=== PATIENT | male | born 1970 | race Caucasian/White ===

== ENCOUNTER 2016-06-05 18:12 | Emergency (ER) | payer BC, OTHER ==
[~2016-06-05] VITALS: Ht 160 cm; Wt 66.1 kg
[2016-06-05 18:18] VITALS: Ht 160 cm; Wt 66.1 kg
[2016-06-05] MEDS ORDERED: FLUO10CA48 PO (18:44)
[2016-06-05] MEDS ORDERED: NTRGSL/4 UT (18:44)
--- NOTE | 2016-06-05 18:44 | EMERGENCY ROOM VISIT NOTE ---
History Report prepared by Alexander: Corrina Muller Under the Supervision of: Dr. Jarad Hartman M.D. First contact with patient: 18:28 Chief Complaint: CHEST PAIN Stated Complaint: SEVERE CHEST PAIN History of Present Illness The patient is a 45 year old male who presents to the Emergency Room with complaints of worsening chest pain starting 1 month [employer]. The patient currently rates his pain as a 9/10 in severity. The patient states that his chest pain worsened a few days [employer]. The patient states that he was evaluated at [facility] 1 day ago and left against medical advice because he had to drive someone home. He states he had a CT scan done and was going to be admitted due to a possible aneurysm or pulmonary embolism. The patient states that his chest pain is worsened by taking deep breath. He states that he also has SOB, chills, and night sweats. The patient states he does not have any leg pain but states his legs and arms feel stiff. The patient states that he has a history of kidney problems along with depression and anxiety. Source of History: patient Onset: 1 month [employer] Position: chest Symptom Intensity: 9/10 Timing: worsening Modifying Factors (Relieving): breathing Associated Symptoms: + SOB, + chills Note: Associated symptoms: night sweats, leg and arm stiffness, depression, anxiety. Patient denies leg pain. Review of Systems All systems have been listed, reviewed, and are negative other than those previously mentioned. Please see Additional Medical History Sheet. Past Medical & Surgical Medical Problems: (1) Alcohol abuse (2) Anxiety disorder (3) Depression (4) Diverticulosis Colon (W/O Ment Of Hemorrhage) (5) FAMILY DISRUPTION D/T DIVORCE OR LEGAL SEPARATION (6) Hirschsprung's Disease (7) History of - depression (8) Kidney disease Family History Cancer Heart disease Lung disease Social History Smoking Status: Never Smoker Smokeless Tobacco Use: No Alcohol Use: occasionally (3/day) Drug Use: none Marital Status: Housing Status: lives with family Occupation Status: employed Current/Historical Medications Scheduled Fluoxetine (Prozac), 10 MG PO DAILY Nitroglycerin (Nitrostat), 0.4 MG UT PRN Scheduled PRN Ibuprofen Tab (Motrin), 600 MG PO Q6H PRN for Pain Allergies Coded Allergies: Citalopram (Verified Allergy, Severe, ANAPHYLAXIS, uses Prozac, 06/05/16) Gabapentin (Verified Allergy, Severe, LIGHT HEADED, 06/05/16) Penicillins (Verified Allergy, Unknown, ANAPHYLAXIS, 06/05/16) as child had pcn and stopped breathing Physical Exam Vital Signs Date Time Temp Pulse Resp B/P Pulse Ox O2 Delivery O2 Flow Rate FiO2 06/05/16 21:35 36.8 82 16 123/60 99 06/05/16 21:06 82 16 123/60 99 Room Air 06/05/16 20:00 78 19 130/90 99 Room Air 06/05/16 19:42 75 21 97 Room Air 06/05/16 19:37 75 27 98 06/05/16 19:32 76 22 97 06/05/16 19:27 72 22 96 Room Air 06/05/16 19:13 134/85 06/05/16 19:12 79 20 06/05/16 19:07 77 18 06/05/16 19:06 98 Room Air 06/05/16 19:06 98 Room Air 06/05/16 19:06 98 Room Air 06/05/16 19:02 78 20 06/05/16 18:58 133/84 06/05/16 18:57 77 32 97 Room Air 06/05/16 18:52 80 20 97 Room Air 06/05/16 18:47 77 20 97 Room Air 06/05/16 18:43 138/91 06/05/16 18:42 82 23 98 Room Air 06/05/16 18:37 81 19 99 Room Air 06/05/16 18:33 90 06/05/16 18:32 91 13 98 Room Air 06/05/16 18:29 163/105 06/05/16 18:18 36.8 81 18 147/78 99 Room Air Physical Exam GENERAL: Patient awake, alert, oriented x 3. Patient follows commands. Patient does not appear toxic. Patient is adequately hydrated and well- nourished. SKIN: No erythema, pallor, cyanosis or rash HEENT: Normal head, pupils equal, reactive to light and accommodation. Oral cavity and posterior pharynx appear normal. Neck: Without adenopathy, no neck vein distention. LUNGS: Clear to auscultation. No wheezes, no rales, no rhonchi. HEART: No murmurs. No gallops. No rubs ABDOMEN: No masses, no rebound, no hepatomegaly or splenomegaly. EXTREMITIES: No signs of trauma. No pedal or pretibial edema. No calf or thigh tenderness. NEUROLOGIC: Cranial nerves II-XII within normal limits. No gross motor sensory function deficits. Medical Decision & Procedures ER Provider Diagnostic Interpretation: X ray results are stated below per my interpretation and the radiologist's interpretation. CHEST 2 VIEWS ROUTINE CLINICAL HISTORY: CHEST PAIN dyspnea COMPARISON STUDY: 03/27/2016 FINDINGS: The bones soft tissues and hemidiaphragms are normal. The cardiomediastinal silhouette is normal. The lungs are clear. The pulmonary vasculature is normal. IMPRESSION: Negative chest. Electronically signed by: Thai Alford M.D. 06/05/2016 7:32 PM Dictated Date/Time: 06/05/2016 7:32 PM Laboratory Results 06/05/16 19:15 06/05/16 19:15 Test 06/05/16 19:15 Red Blood Count 4.69 M/uL (4.7-6.1) Mean Corpuscular Volume 93.0 fL (80-100) Mean Corpuscular Hemoglobin 32.0 pg (25-34) Mean Corpuscular Hemoglobin Concent 34.4 g/dl (32-36) RDW Standard Deviation 47.0 fL (36.4-46.3) RDW Coefficient of Variation 13.9 % (11.5-14.5) Mean Platelet Volume 11.6 fL (7.4-10.4) Anion Gap 9.0 mmol/L (3-11) Est Creatinine Clear Calc Drug Dose 79.8 ml/min Estimated GFR () 111.8 Estimated GFR (Non- 96.4 BUN/Creatinine Ratio 11.1 (10-20) Calcium Level 8.2 mg/dl (8.5-10.1) Troponin I < 0.015 ng/ml (0-0.045) Laboratory results as stated above per my review. Medications Administered Medications (Trade) Dose Ordered Sig/Bakari Route Start Time Stop Time Status Last Admin Dose Admin Ondansetron HCl (Zofran Inj) 4 mg Q1HWA PRN IV 06/05/16 18:45 06/05/16 21:45 DC 06/05/16 19:58 4 MG Morphine Sulfate (MoRPHine SULFATE INJ) 2 mg STK-MED ONCE .ROUTE 06/05/16 19:52 06/05/16 19:54 DC 06/05/16 19:58 2 MG Morphine Sulfate (MoRPHine SULFATE INJ) 4 mg STK-MED ONCE .ROUTE 06/05/16 19:52 06/05/16 19:54 DC 06/05/16 19:59 4 MG Ibuprofen (Motrin Tab) 600 mg NOW STAT PO 06/05/16 20:46 06/05/16 20:48 DC 06/05/16 21:04 600 MG ECG Indication: chest pain Rate (beats per minute): 80 Rhythm: normal sinus Findings: no acute ischemic change, no ectopy ED Course 1827: Past medical records reviewed. The patient was evaluated in room C11B. A complete history and physical examination was performed. 1844: Ordered Zofran Inj 4 mg IV, Morphine Sulfate 6 mg IV. 2029: Review of [place] data from 1 day ago, multiple lab imaging performed. CT scan reveals aortic root/sinus of Valsalva aneurysm. 2033: I reevaluated the patient and discussed his results and he was hemodynamically stable. I discussed today's findings with him. He verbalized agreement of the treatment plan. The patient was discharged home. 2039: I discussed with case management if they could set up a follow up echocardiograph for the patient to further follow up on his results as an outpatient. 2045: Ordered Ibuprofen Tab 600 mg PO. Medical Decision I considered multiple diagnoses including myocardial infarction, chest wall pain , pericarditis, myocarditis, aortic emergencies, pulmonary embolism, congestive heart failure, GI causes, and other significant cardiopulmonary disorders, anxiety and depression. The patient was seen at [facility] 1 day ago and had multiple tests. CT results as listed above. The patient left AMA. The patient continues to complain of pain. A full workup ensued here but I did not repeat the CT. Multiple tests were obtained here. Please see above. The patient has no EKG findings or elevation of his troponin. His white count is slightly elevated. The patient has had this pain for over one month. The patient remains stable and I do not believe the patient requires admission at this time. I will attempt to arrange echocardiography for further evaluation of the aortic problem. The patient is extremely anxious and I believe that is a large part of his chest pain. The patient will be encouraged to use ibuprofen for the pain. He is to apply heat. He is to follow-up with his family physician. Impression Primary Impression: Substernal precordial chest pain Scribe Attestation The scribe's documentation has been prepared under my direction and personally reviewed by me in its entirety. I confirm that the note above accurately reflects all work, treatment, procedures, and medical decision making performed by me. Departure Information Dispostion Home / Self-Care Prescriptions Ibuprofen Tab (MOTRIN) 600 Mg Tab 600 MG PO Q6H Y for Pain, #20 TAB Prov: Jarad Hartman M.D. 06/05/16 Referrals Caron Diego D.O. (PCP) Forms HOME CARE DOCUMENTATION FORM, IMPORTANT VISIT INFORMATION Patient Instructions My [facility] Additional Instructions We will call you for an appointment for the echocardiogram. Follow-up with your family physician as soon as possible. 600 mg ibuprofen every 6 hours as needed for pain. Apply heat intermittently to your chest.
[2016-06-05] MEDS ORDERED: ONDANSETRON INJ 2 MG/ML 2 ML VIAL IV PRN (18:45)
[2016-06-05] MEDS ORDERED: MoRPHine SULFATE 10 MG/ML CARP/VIAL IV PRN (18:45)
[2016-06-05 19:06] VITALS: O2SAT 98
[2016-06-05 19:21] LABS: HEMATOCRIT 43.6 % (42-52); MEAN CORPUSCULAR HGB CONC 34.4 g/dl (32-36); MEAN PLATELET VOLUME 11.6 fL (7.4-10.4); PLATELET COUNT 160 K/uL (130-400); RED BLOOD COUNT 4.69 M/uL (4.7-6.1); WHITE BLOOD COUNT 13.28 K/uL (4.8-10.8)
--- NOTE | 2016-06-05 19:34 | DIAGNOSTIC IMAGING REPORT ---
CHEST 2 VIEWS ROUTINE CLINICAL HISTORY: CHEST PAIN dyspnea COMPARISON STUDY: 03/27/2016 FINDINGS: The bones soft tissues and hemidiaphragms are normal. The cardiomediastinal silhouette is normal. The lungs are clear. The pulmonary vasculature is normal. IMPRESSION: Negative chest. Electronically signed by: Thai Alford M.D. 06/05/2016 7:32 PM Dictated Date/Time: 06/05/2016 7:32 PM
[2016-06-05 19:40] LABS: BLOOD UREA NITROGEN 11 mg/dl (7-18); BUN/CREATININE RATIO 11.1 (10-20); CALCIUM 8.2 mg/dl (8.5-10.1); CARBON DIOXIDE 27 mmol/L (21-32); CHLORIDE 107 mmol/L (98-107); CREATININE 0.96 mg/dl (0.60-1.40); GLUCOSE 100 mg/dl (70-99); POTASSIUM 3.8 mmol/L (3.5-5.1); SODIUM 143 mmol/L (136-145)
[2016-06-05] MEDS ORDERED: MoRPHine SULFATE 2 MG/ML CARP ONE (19:52)
[2016-06-05] MEDS ORDERED: MoRPHine SULFATE 4 MG/ML 1 ML CARP\\VIAL ONE (19:52)
[2016-06-05] MEDS ORDERED: IBUP-1427 PO (20:44)
[2016-06-05] MEDS ORDERED: IBUPROFEN 600 MG TAB PO STA (20:46)
[2016-06-05 21:35] VITALS: BP 123/60; PULSE 82; TEMP 36.8; O2SAT 99
[2016-06-06] MEDS ORDERED: PRED20TA2 PO (21:09)
[2016-06-06] MEDS ORDERED: HYDR5SYP11 PO (21:10)
== END 2016-06-05 21:36 | disposition home or self-care (01) ==
LOC: C.EDB 18:13 → C.EDC 21:36
DX: R07.2 Precordial pain (principal); N28.9 Disorder of kidney and ureter, unspecified; F41.9 Anxiety disorder, unspecified; F32.9 Major depressive disorder, single episode, unspecified; K57.30 Diverticulosis of large intestine without perforation or abscess without bleeding; Q43.1 Hirschsprung's disease; Z79.899 Other long term (current) drug therapy

== ENCOUNTER 2016-06-06 16:54 | Emergency (ER) | payer OTHER ==
[~2016-06-06] VITALS: Ht 160 cm; Wt 64.6 kg
[~2016-06-06 16:54] MED LIST: FLUO10CA48 PO; IBUP-1427 PO; NTRGSL/4 UT
[2016-06-06 17:06] VITALS: TEMP 36.9; Ht 160 cm; Wt 64.6 kg
[2016-06-06] MEDS ORDERED: ONDANSETRON INJ 2 MG/ML 2 ML VIAL IV STA (18:11)
[2016-06-06] MEDS ORDERED: MoRPHine SULFATE 10 MG/ML CARP/VIAL IV STA (18:11)
[2016-06-06] MEDS ORDERED: SODIUM CHLORIDE 0.9% 1000ML 1,000 ML IV STA (18:14)
[2016-06-06] MEDS ORDERED: ALBUT/IPRATROP 3MG/0.5MG NEB 3 ML VIAL INH ONE (18:15)
[2016-06-06] MEDS ORDERED: OPTIRAY 320 IV PRN (18:30)
[2016-06-06] MEDS ORDERED: MoRPHine SULFATE 4 MG/ML 1 ML CARP\\VIAL ONE (18:30)
--- NOTE | 2016-06-06 18:32 | EMERGENCY ROOM VISIT NOTE ---
History Report prepared by Alexander: Molly Valenzuela Under the Supervision of: Dr. Angelito Clark M.D. First contact with patient: 17:36 Chief Complaint: COUGH Stated Complaint: COUGH WITH MUCUS, CHEST PAIN Nursing Triage Summary: Chest tightness that started last night, was seen here last night CP. Told to follow up for ECHO. Coughing up yellow stuff now. Unable to talk due to sorethroat. SOB. History of Present Illness The patient is a 45 year old male who presents to the Emergency Room with complaints of a worsening productive cough that started a couple days ago. The patient is also experiencing a sore throat and shortness of breath. The patient was seen in the ED last night for chest tightness. He was told to schedule a follow-up echocardiogram. They told him to come back into the ED if his symptoms worsened. He states that his cough became productive today with yellow sputum, which is why he came back. He has not been using an inhaler. The patient was seen in [place] two days ago for similar symptoms. He states that the chest tightness was more severe there. Source of History: patient Onset: a couple days ago Position: chest Quality: other (productive cough) Timing: worsening Associated Symptoms: + SOB, + sorethroat Note: chest tightness Review of Systems See HPI for pertinent positives & negatives. A total of 10 systems reviewed and were otherwise negative. Past Medical & Surgical Medical Problems: (1) Alcohol abuse (2) Anxiety disorder (3) Depression (4) Diverticulosis Colon (W/O Ment Of Hemorrhage) (5) FAMILY DISRUPTION D/T DIVORCE OR LEGAL SEPARATION (6) Hirschsprung's Disease (7) History of - depression (8) Kidney disease Family History Cancer Heart disease Lung disease Social History Smoking Status: Never Smoker Alcohol Use: occasionally Drug Use: none Marital Status: Housing Status: lives with family Occupation Status: employed Current/Historical Medications Scheduled Fluoxetine (Prozac), 20 MG PO QAM Prednisone (Prednisone Tab), 0 PO DAILY Scheduled PRN Hydrocodone W/ Homatropine (Hycodan 5/1.5MG 5 Ml), 5 ML PO HS PRN for Cough Allergies Coded Allergies: Citalopram (Verified Allergy, Severe, ANAPHYLAXIS, uses Prozac, 06/06/16) Gabapentin (Verified Allergy, Severe, LIGHT HEADED, 06/06/16) Penicillins (Verified Allergy, Unknown, ANAPHYLAXIS, 06/06/16) as child had pcn and stopped breathing Physical Exam Vital Signs Date Time Temp Pulse Resp B/P Pulse Ox O2 Delivery O2 Flow Rate FiO2 06/06/16 21:20 78 18 127/79 98 Room Air 06/06/16 19:44 98 18 137/97 97 Room Air 06/06/16 19:00 78 18 97 Room Air 06/06/16 18:44 85 20 157/109 94 Room Air 06/06/16 18:42 71 06/06/16 18:41 94 Room Air 06/06/16 18:41 96 Room Air 06/06/16 17:13 97 Room Air 06/06/16 17:06 36.9 97 20 124/88 96 Room Air Physical Exam GENERAL: Patient is a healthy-appearing well-nourished male. Patient is coughing on exam and smells of cigarettes. HEAD: Normocephalic atraumatic EYES: Ocular movements intact pupils equal and react to light OROPHARYNX mucous membranes are moist no exudates present no erythema or edema present NECK: Supple no nuchal rigidity CHEST: Good equal expansion LUNGS: Clear and equal to auscultation CARDIAC: Normal S1 and S2 ABDOMEN: Soft nontender no guarding BACK: No CVA tenderness EXTREMITIES: No pain upon palpation normal muscle strength in all groups no clubbing cyanosis or edema NEURO: Patient is following commands is answering questions appropriately. Alert and oriented x3 Cranial Nerves 2-12 grossly intact Medical Decision & Procedures ER Provider Diagnostic Interpretation: CT results as stated below per my review and radiologist interpretation: CHEST CTA for PULMONARY ARTERIES IMPRESSION: No evidence for pulmonary embolus. Lungs are clear. Mild cardiomegaly. Electronically signed by: Thai Alford M.D. 06/06/2016 7:58 PM Dictated Date/Time: 06/06/2016 7:56 PM Laboratory Results 06/06/16 18:40 Red Blood Count 4.49, Mean Corpuscular Volume 90.9, Mean Corpuscular Hemoglobin 30.7, Mean Corpuscular Hemoglobin Concent 33.8, Mean Platelet Volume 11.2, Neutrophils (%) (Auto) 77.4, Lymphocytes (%) (Auto) 11.0, Monocytes (%) (Auto) 8.8, Eosinophils (%) (Auto) 2.2, Basophils (%) (Auto) 0.1, Neutrophils # (Auto) 8.34, Lymphocytes # (Auto) 1.19, Monocytes # (Auto) 0.95, Eosinophils # (Auto) 0.24, Basophils # (Auto) 0.01 06/06/16 18:40 Test 06/06/16 18:40 06/06/16 18:47 06/06/16 19:00 White Blood Count 10.78 K/uL (4.8-10.8) Red Blood Count 4.49 M/uL (4.7-6.1) Hemoglobin 13.8 g/dL (14.0-18.0) Hematocrit 40.8 % (42-52) Mean Corpuscular Volume 90.9 fL (80-100) Mean Corpuscular Hemoglobin 30.7 pg (25-34) Mean Corpuscular Hemoglobin Concent 33.8 g/dl (32-36) Platelet Count 162 K/uL (130-400) Mean Platelet Volume 11.2 fL (7.4-10.4) Neutrophils (%) (Auto) 77.4 % Lymphocytes (%) (Auto) 11.0 % Monocytes (%) (Auto) 8.8 % Eosinophils (%) (Auto) 2.2 % Basophils (%) (Auto) 0.1 % Neutrophils # (Auto) 8.34 K/uL (1.4-6.5) Lymphocytes # (Auto) 1.19 K/uL (1.2-3.4) Monocytes # (Auto) 0.95 K/uL (0.11-0.59) Eosinophils # (Auto) 0.24 K/uL (0-0.5) Basophils # (Auto) 0.01 K/uL (0-0.2) RDW Standard Deviation 45.2 fL (36.4-46.3) RDW Coefficient of Variation 13.7 % (11.5-14.5) Immature Granulocyte % (Auto) 0.5 % Immature Granulocyte # (Auto) 0.05 K/uL (0.00-0.02) Urine Color YELLOW Urine Appearance CLEAR (CLEAR) Urine pH 5.5 (4.5-7.5) Urine Specific [place] 1.002 (1.000-1.030) Urine Protein NEG (NEG) Urine Glucose (UA) NEG (NEG) Urine Ketones NEG (NEG) Urine Occult Blood NEG (NEG) Urine Nitrite NEG (NEG) Urine Bilirubin NEG (NEG) Urine Urobilinogen NEG (NEG) Urine Leukocyte Esterase NEG (NEG) Est Creatinine Clear Calc Drug Dose 84.2 ml/min Estimated GFR () 119.2 Estimated GFR (Non- 102.9 BUN/Creatinine Ratio 10.8 (10-20) Calcium Level 7.7 mg/dl (8.5-10.1) Total Bilirubin 0.5 mg/dl (0.2-1) Aspartate Amino Transf (AST/SGOT) 36 U/L (15-37) Alanine Aminotransferase (ALT/SGPT) 32 U/L (12-78) Alkaline Phosphatase 73 U/L (45-117) Total Creatine Kinase 55 U/L (39-308) Creatine Kinase MB 0.5 ng/ml (0.5-3.6) Creatine Kinase MB Ratio 0.9 (0-3.0) Troponin I < 0.015 ng/ml (0-0.045) Total Protein 7.0 gm/dl (6.4-8.2) Albumin 3.7 gm/dl (3.4-5.0) Globulin 3.3 gm/dl (2.5-4.0) Albumin/Globulin Ratio 1.1 (0.9-2) Bedside Hemoglobin 14.3 g/dl (14.0-18.0) Bedside Hematocrit 42 % (42-52) Bedside Sodium 142 mEq/L (135-144) Bedside Potassium 4.1 mEq/L (3.3-5.0) Bedside Chloride 103 mEq/L (101-112) Bedside Total CO2 25 mEq/l (24-31) Anion Gap 19.0 mmol/L (16-25) Bedside Blood Urea Nitrogen 9 mg/dl (7-18) Bedside Creatinine 0.9 mg/dl (0.6-1.3) Bedside Glucose (other) 86 mg/dl (70-99) Bedside Ionized Calcium (Ibis) 1.04 mmol/l (1.12-1.32) Influenza Type A (RT-PCR) Neg for Influ A (NEG) Influenza Type B (RT-PCR) Neg for Influ B (NEG) Labs reviewed by ED physician. Medications Administered Medications (Trade) Dose Ordered Sig/Bakari Route Start Time Stop Time Status Last Admin Dose Admin Albuterol/ Ipratropium (Duoneb) 12 ml ONE ONCE INH 06/06/16 18:15 06/06/16 18:16 DC 06/06/16 18:15 12 ML Ondansetron HCl 4 mg 4 mg NOW STAT IV 06/06/16 18:11 06/06/16 18:14 DC 06/06/16 18:37 4 MG Sodium Chloride (Nss 1000ml) 1,000 ml @ 999 mls/hr Q1H1M STAT IV 06/06/16 18:14 06/06/16 19:14 DC 06/06/16 18:39 999 MLS/HR Morphine Sulfate (MoRPHine SULFATE INJ) 8 mg STK-MED ONCE .ROUTE 06/06/16 18:30 06/06/16 18:33 DC 06/06/16 18:39 8 MG Methylprednisolone Sodium Succinate (Solu-Medrol IV) 125 mg NOW STAT IV 06/06/16 21:04 06/06/16 21:05 DC 06/06/16 21:19 125 MG Albuterol (Ventolin Hfa Inhaler) 2 puffs NOW ONCE INH 06/06/16 21:15 06/06/16 21:16 DC 06/06/16 21:19 2 PUFFS Hydrocodone Bit/ Homatropine Methylb (Hycodan Elix Homepack 5/1.5MG/ 5ML) 1 homepack UD ONCE PO 06/06/16 21:15 06/06/16 21:16 DC 06/06/16 21:20 1 HOMEPACK ECG Indication: chest pain Rate (beats per minute): 74 Rhythm: normal sinus Findings: no acute ischemic change, no ectopy ED Course 1808: Past medical records reviewed. The patient was evaluated in room B6. A complete history and physical examination was performed. 1810: Ordered Zofran Inj 4 mg IV, Morphine Sulfate 8 mg IV 1813: Ordered Sodium Chloride 1000 ml @ 999 mls/hr IV 1814: Ordered DuoNeb 12 ml INH 1829: Ordered Morphine Sulfate 8 mg IV 2100: Upon reexamination the patient is doing well. I discussed results and treatment plan with the patient. I offered admission, but he wants to go home. He verbalizes agreement and understanding. The patient is ready for discharge. 2103: Ordered Solu-Medrol IV 125 mg IV, Dilaudid Inj 1 mg IV 2114: Ordered Hydrocodone Bit/Homatropine Methylb 1 homepack PO, Albuterol 2 puffs INH Medical Decision Differential diagnosis: Etiologies such as infections, reactive airway disease, pneumonia, pneumothorax , COPD, CHF, cardiac ischemia, pulmonary embolism, musculoskeletal, gastrointestinal, as well as others were entertained. This is a 45-year-old male who presents emergency department complaining of wheezing, the patient was given a solu Medrol along with breathing treatment. Repeat examination revealed improvement in the patient's symptoms. I do believe the patient as well as to be discharged home on a tapered prednisone dose along with an albuterol inhaler. He is given Hycodan for the cough. Patient was in agreement with the treatment plan. Impression Primary Impression: Acute bronchitis Additional Impression: Precordial chest pain Scribe Attestation The scribe's documentation has been prepared under my direction and personally reviewed by me in its entirety. I confirm that the note above accurately reflects all work, treatment, procedures, and medical decision making performed by me. Departure Information Dispostion Home / Self-Care Prescriptions Hydrocodone W/ Homatropine (HYCODAN 5/1.5MG 5 ML) 1 Syp Syp 5 ML PO HS Y for Cough, #120 ML Prov: Angelito Clark MD 06/06/16 Prednisone (Prednisone Tab) 20 Mg Tab 0 PO DAILY, #7 TAB 2 TABS DAILY FOR 2 DAYS, THEN 1 TAB DAILY FOR 2 DAYS, THEN 1/2 TAB DAILY FOR 2 DAYS. Prov: Angelito Clark MD 06/06/16 Referrals Caron Diego D.O. (PCP) Forms HOME CARE DOCUMENTATION FORM, IMPORTANT VISIT INFORMATION Patient Instructions Chest Pain - [facility] Additional Instructions Use inhaler twice every 6 hours Follow up with Dr Booker's office for questionable CT findings You received narcotic or benzodiazepene medication while in the emergency room today. Do not drive, operate heavy machinery, or drink alcohol under the influence of this medication. Take 600 mg Ibuprofen every 6 hours Take Hycodan for breakthrough pain You have been examined and treated today on an emergency basis only. This is not a substitute for, or an effort to provide, complete comprehensive medical care. It is impossible to recognize and treat all injuries or illnesses in a single emergency department visit. It is therefore important that you follow up closely with Dr Diego. Call as soon as possible for an appointment. Thank you for your time and consideration. I look forward to speaking with you again soon. Please don't hesitate to call us if you have any questions. Problem Qualifiers Primary Impression: Acute bronchitis Bronchitis organism: unspecified organism Qualified Codes: J20.9 - Acute bronchitis, unspecified
[2016-06-06 18:41] VITALS: O2SAT 94
[2016-06-06 18:59] LABS: BASO % 0.1 %; BASO ABS # 0.01 K/uL (0-0.2); COMPLETE YES; EOS % 2.2 %; HEMATOCRIT 40.8 % (42-52); IG% 0.5 %; LYMPH ABS # 1.19 K/uL (1.2-3.4); MEAN CELL VOLUME 90.9 fL (80-100); MEAN CORPUSCULAR HEMOGLOBIN 30.7 pg (25-34); MEAN CORPUSCULAR HGB CONC 33.8 g/dl (32-36); MEAN PLATELET VOLUME 11.2 fL (7.4-10.4); MONO % 8.8 %; NEUT % 77.4 %; PLATELET COUNT 162 K/uL (130-400); RED BLOOD COUNT 4.49 M/uL (4.7-6.1); WHITE BLOOD COUNT 10.78 K/uL (4.8-10.8)
[2016-06-06 19:00] VITALS: PULSE 78; O2SAT 97
[2016-06-06 19:03] LABS: ISTAT CREATININE 0.9 mg/dl (0.6-1.3); ISTAT HEMOGLOBIN 14.3 g/dl (14.0-18.0); ISTAT IONIZED CALCIUM 1.04 mmol/l (1.12-1.32)
[2016-06-06 19:04] LABS: URINE APPEARANCE CLEAR (CLEAR); URINE BILIRUBIN NEG (NEG); URINE COLOR YELLOW; URINE NITRITE NEG (NEG); URINE PH 5.5 (4.5-7.5); URINE SPECIFIC GRAVITY 1.002 (1.000-1.030); UROBILINOGEN NEG (NEG)
[2016-06-06 19:05] LABS: MANUAL MICROSCOPIC REQUIRED? NO; REVIEW REQ? NO
[2016-06-06 19:13] LABS: ALT/SGPT 32 U/L (12-78); BLOOD UREA NITROGEN 10 mg/dl (7-18); BUN/CREATININE RATIO 10.8 (10-20); CALCIUM 7.7 mg/dl (8.5-10.1); CARBON DIOXIDE 26 mmol/L (21-32); CHLORIDE 107 mmol/L (98-107); CREATININE 0.91 mg/dl (0.60-1.40); GLUCOSE 80 mg/dl (70-99); POTASSIUM 4.1 mmol/L (3.5-5.1); SODIUM 144 mmol/L (136-145)
[2016-06-06 19:18] LABS: ALB/GLOB RATIO 1.1 (0.9-2); ALKALINE PHOSPHATASE 73 U/L (45-117); AST/SGOT 36 U/L (15-37); CKMB/CK RATIO 0.9 (0-3.0)
--- NOTE | 2016-06-06 20:00 | DIAGNOSTIC IMAGING REPORT ---
CHEST CTA for PULMONARY ARTERIES CT DOSE: 192.46 mGy.cm HISTORY: Chest pain dyspnea TECHNIQUE: Multiaxial CT images of the chest were performed following the intravenous administration of contrast to evaluate the pulmonary arteries. Maximal intensity projection images were also obtained. COMPARISON STUDY: None. FINDINGS: There is a normal caliber thoracic aorta with no evidence for dissection. There is no evidence for pulmonary embolus. No pleural effusions. No pneumothorax. The liver and spleen are unremarkable. No mediastinal or hilar lymphadenopathy. The central airways are patent. The lungs are clear. IMPRESSION: No evidence for pulmonary embolus. Lungs are clear. Mild cardiomegaly. Electronically signed by: Thai Alford M.D. 06/06/2016 7:58 PM Dictated Date/Time: 06/06/2016 7:56 PM
[2016-06-06 20:32] LABS: INFLUENZA A PCR Neg for Influ A (NEG); INFLUENZA B PCR Neg for Influ B (NEG)
[2016-06-06] MEDS ORDERED: HYDROmorphone INJ 1 MG/ML SYR IV STA (21:04)
[2016-06-06] MEDS ORDERED: METHYLPREDNISOLONE 125 MG VIAL IV STA (21:04)
[2016-06-06] MEDS ORDERED: PRED20TA2 PO (21:09)
[2016-06-06] MEDS ORDERED: HYDR5SYP11 PO (21:10)
[2016-06-06] MEDS ORDERED: HYCODAN 60ML BOTTLE HOMEPACK PO ONE (21:15)
[2016-06-06] MEDS ORDERED: ALBUTEROL HFA 8 GM INHALER INH ONE (21:15)
[2016-06-06 21:20] VITALS: BP 127/79; PULSE 78; O2SAT 98
== END 2016-06-06 22:20 | disposition home or self-care (01) ==
LOC: C.EDB 16:54
DX: J20.9 Acute bronchitis, unspecified (principal); R07.2 Precordial pain; F41.9 Anxiety disorder, unspecified; F32.9 Major depressive disorder, single episode, unspecified; K57.30 Diverticulosis of large intestine without perforation or abscess without bleeding; Q43.1 Hirschsprung's disease; N28.9 Disorder of kidney and ureter, unspecified; Z79.899 Other long term (current) drug therapy; Z88.0 Allergy status to penicillin; Z88.8 Allergy status to other drugs, medicaments and biological substances; Z80.9 Family history of malignant neoplasm, unspecified; Z82.49 Family history of ischemic heart disease and other diseases of the circulatory system

== ENCOUNTER 2016-06-11 16:27 | Emergency (ER) | payer OTHER ==
[~2016-06-11] VITALS: Ht 160 cm; Wt 63.8 kg
[~2016-06-11 16:27] MED LIST changes: -FLUO10CA48 PO; +HYDR5SYP11 PO; -IBUP-1427 PO; -NTRGSL/4 UT; +PRED20TA2 PO
[2016-06-11 16:38] VITALS: BP 154/84; PULSE 82; TEMP 36.6; O2SAT 97; Ht 160 cm; Wt 63.8 kg
[2016-06-11] MEDS ORDERED: FLUO20CA35 PO (18:26)
== END 2016-06-11 17:52 | disposition left against medical advice (07) ==
LOC: C.EDB 16:28
DX: N64.4 Mastodynia (principal)

== ENCOUNTER 2016-06-11 19:03 | Emergency (ER) | payer OTHER ==
[~2016-06-11] VITALS: Ht 160 cm; Wt 63.7 kg
[~2016-06-11 19:03] MED LIST changes: +FLUO20CA35 PO
[2016-06-11 19:08] VITALS: TEMP 37; Ht 160 cm; Wt 63.7 kg
[2016-06-11] MEDS ORDERED: SODIUM CHLORIDE 0.9% 1000ML 1,000 ML IV ONE (19:33)
[2016-06-11] MEDS ORDERED: HYDROmorphone INJ 1 MG/ML SYR IV STA (19:33)
[2016-06-11] MEDS ORDERED: SODIUM CHLORIDE 0.9% 1000ML 1,000 ML IV STA (19:33)
[2016-06-11] MEDS ORDERED: ONDANSETRON INJ 2 MG/ML 2 ML VIAL IV STA (19:33)
[2016-06-11 19:58] LABS: BASO % 0.1 %; BASO ABS # 0.01 K/uL (0-0.2); COMPLETE YES; EOS % 1.7 %; HEMATOCRIT 41.5 % (42-52); IG% 0.9 %; LYMPH % 15.6 %; LYMPH ABS # 1.58 K/uL (1.2-3.4); MEAN CELL VOLUME 89.8 fL (80-100); MEAN CORPUSCULAR HEMOGLOBIN 30.7 pg (25-34); MEAN CORPUSCULAR HGB CONC 34.2 g/dl (32-36); MEAN PLATELET VOLUME 10.6 fL (7.4-10.4); NEUT % 68.7 %; PLATELET COUNT 189 K/uL (130-400); RED BLOOD COUNT 4.62 M/uL (4.7-6.1); WHITE BLOOD COUNT 10.14 K/uL (4.8-10.8)
--- NOTE | 2016-06-11 20:09 | DIAGNOSTIC IMAGING REPORT ---
CHEST ONE VIEW PORTABLE HISTORY: Atypical CHEST PAIN COMPARISON: Chest 06/05/2016. FINDINGS: The heart remains mildly enlarged. The lungs are clear. No pleural effusions. No pneumothorax. IMPRESSION: No significant change compared to the prior study. No acute process. Electronically signed by: Tuan Marlow M.D. 06/11/2016 8:08 PM Dictated Date/Time: 06/11/2016 8:07 PM
[2016-06-11 20:32] LABS: BUN/CREATININE RATIO 8.7 (10-20); CALCIUM 8.3 mg/dl (8.5-10.1); CREATININE 0.89 mg/dl (0.60-1.40)
[2016-06-11 20:33] LABS: POTASSIUM 3.7 mmol/L (3.5-5.1)
--- NOTE | 2016-06-11 20:34 | DIAGNOSTIC IMAGING REPORT ---
ABDOMINAL ULTRASOUND, RIGHT UPPER QUADRANT HISTORY: Right upper quadrant abdominal pain.. COMPARISON: Abdomen and pelvis CT 08/20/2015. FINDINGS: Pancreas: Obscured by overlying bowel gas. Liver: Unremarkable. Gallbladder: No gallbladder wall thickening. No gallstones. CBD: 4 mm. Right kidney: No hydronephrosis. IMPRESSION: 1. Normal gallbladder. No gallstones. 2. The pancreas was obscured by overlying bowel gas. Electronically signed by: Tuan Marlow M.D. 06/11/2016 8:33 PM Dictated Date/Time: 06/11/2016 8:32 PM
--- NOTE | 2016-06-11 20:39 | EMERGENCY ROOM VISIT NOTE ---
History Report prepared by Alexander: Yuni Caba Under the Supervision of: Dr. Yoel Conley M.D. First contact with patient: 19:12 Chief Complaint: ABDOMINAL PAIN Stated Complaint: PAIN UNDER RIGHT BREAST Nursing Triage Summary: Pt presents with RUQ, nausea, lightheadedness. Pt repeatedly stating in triage that pain is from his gall bladder. History of Present Illness The patient is a 45 year old male who presents to the Emergency Room with complaints of worsening RUQ abdominal pain for the past month. He notes nausea, lightheadedness, diaphoresis, and chills. He states, "I smell bad too. I think it's all my gallbladder." He rates his pain as a 10/10 in severity. He reports a loss of appetite and states that eating exacerbates his pain. He feels short of breath secondary to pain. He has had some darker colored urine. The patient denies vomiting and anxiety. He has had normal bowel movements. Source of History: patient, spouse/significant other Onset: 1 month ago Position: abdomen (RUQ) Symptom Intensity: 10/10 Timing: worsening Modifying Factors (Worsening): eating Associated Symptoms: + SOB, + chills, + diaphoresis, + nausea, + urinary symptoms, No vomiting Review of Systems See HPI for pertinent positives & negatives. A total of 10 systems reviewed and were otherwise negative. Past Medical & Surgical Medical Problems: (1) Alcohol abuse (2) Anxiety disorder (3) Depression (4) Diverticulosis Colon (W/O Ment Of Hemorrhage) (5) FAMILY DISRUPTION D/T DIVORCE OR LEGAL SEPARATION (6) Hirschsprung's Disease (7) History of - depression (8) Kidney disease Old medical records were reviewed. Nurse's notes were reviewed and I agree with. Family History Cancer Heart disease Lung disease Social History Smoking Status: Never Smoker Alcohol Use: occasionally Drug Use: none Marital Status: Housing Status: lives with family Occupation Status: employed Current/Historical Medications Scheduled Fluoxetine (Prozac), 20 MG PO QAM Prednisone (Prednisone Tab), 0 PO DAILY Scheduled PRN Hydrocodone W/ Homatropine (Hycodan 5/1.5MG 5 Ml), 5 ML PO HS PRN for Cough Allergies Coded Allergies: Citalopram (Verified Allergy, Severe, ANAPHYLAXIS, uses Prozac, 06/06/16) Gabapentin (Verified Allergy, Severe, LIGHT HEADED, 06/06/16) Penicillins (Verified Allergy, Unknown, ANAPHYLAXIS, 06/06/16) as child had pcn and stopped breathing Physical Exam Vital Signs Date Time Temp Pulse Resp B/P Pulse Ox O2 Delivery O2 Flow Rate FiO2 06/11/16 21:34 79 18 137/73 98 06/11/16 20:39 86 16 140/79 99 Room Air 06/11/16 19:08 37.0 84 18 144/96 95 Room Air Physical Exam General: Well developed well nourished non ill appearing young male in no acute distress, breathing comfortably on room air, complaining of RUQ abdominal pain. Normal speech HEENT: Normal cephalic atraumatic. Pupils are equal round and reactive to light. Extraocular movements are intact. Oropharynx is pink with moist mucous membranes. No swelling of the mouth lips or tongue. Neck: Supple with a midline trachea. No meningeal signs or stiffness, no JVD or bruits. No Stridor. Chest: Clear to auscultation bilaterally. No wheezes or rhonchi. No increased work of breathing. Heart: regular rate and rhythm. Abdomen: Soft mildly tender to palpation along the right lower ribs, nondistended without rebound guarding or rigidity. Extremities: No cyanosis clubbing or edema. No calf tenderness or assymetry Spine/Back. Non tender to palpation. No CVA tenderness Skin: Good turgor without rashes. Neurologic exam: Cranial nerves two through 12 are intact. Motor and sensation are intact and symmetrical throughout. Medical Decision & Procedures ER Provider Diagnostic Interpretation: Radiology results as stated below per my review and radiologist interpretation: ABDOMINAL ULTRASOUND, RIGHT UPPER QUADRANT HISTORY: Right upper quadrant abdominal pain.. COMPARISON: Abdomen and pelvis CT 08/20/2015. FINDINGS: Pancreas: Obscured by overlying bowel gas. Liver: Unremarkable. Gallbladder: No gallbladder wall thickening. No gallstones. CBD: 4 mm. Right kidney: No hydronephrosis. IMPRESSION: 1. Normal gallbladder. No gallstones. 2. The pancreas was obscured by overlying bowel gas. Electronically signed by: Tuan Marlow M.D. 06/11/2016 8:33 PM Dictated Date/Time: 06/11/2016 8:32 PM CHEST ONE VIEW PORTABLE HISTORY: Atypical CHEST PAIN COMPARISON: Chest 06/05/2016. FINDINGS: The heart remains mildly enlarged. The lungs are clear. No pleural effusions. No pneumothorax. IMPRESSION: No significant change compared to the prior study. No acute process. Electronically signed by: Tuan Marlow M.D. 06/11/2016 8:08 PM Dictated Date/Time: 06/11/2016 8:07 PM Laboratory Results 06/11/16 19:45 Red Blood Count 4.62, Mean Corpuscular Volume 89.8, Mean Corpuscular Hemoglobin 30.7, Mean Corpuscular Hemoglobin Concent 34.2, Mean Platelet Volume 10.6, Neutrophils (%) (Auto) 68.7, Lymphocytes (%) (Auto) 15.6, Monocytes (%) (Auto) 13.0, Eosinophils (%) (Auto) 1.7, Basophils (%) (Auto) 0.1, Neutrophils # (Auto ) 6.97, Lymphocytes # (Auto) 1.58, Monocytes # (Auto) 1.32, Eosinophils # (Auto ) 0.17, Basophils # (Auto) 0.01 06/11/16 19:45 Test 06/11/16 19:45 White Blood Count 10.14 K/uL (4.8-10.8) Red Blood Count 4.62 M/uL (4.7-6.1) Hemoglobin 14.2 g/dL (14.0-18.0) Hematocrit 41.5 % (42-52) Mean Corpuscular Volume 89.8 fL (80-100) Mean Corpuscular Hemoglobin 30.7 pg (25-34) Mean Corpuscular Hemoglobin Concent 34.2 g/dl (32-36) Platelet Count 189 K/uL (130-400) Mean Platelet Volume 10.6 fL (7.4-10.4) Neutrophils (%) (Auto) 68.7 % Lymphocytes (%) (Auto) 15.6 % Monocytes (%) (Auto) 13.0 % Eosinophils (%) (Auto) 1.7 % Basophils (%) (Auto) 0.1 % Neutrophils # (Auto) 6.97 K/uL (1.4-6.5) Lymphocytes # (Auto) 1.58 K/uL (1.2-3.4) Monocytes # (Auto) 1.32 K/uL (0.11-0.59) Eosinophils # (Auto) 0.17 K/uL (0-0.5) Basophils # (Auto) 0.01 K/uL (0-0.2) RDW Standard Deviation 43.6 fL (36.4-46.3) RDW Coefficient of Variation 13.4 % (11.5-14.5) Immature Granulocyte % (Auto) 0.9 % Immature Granulocyte # (Auto) 0.09 K/uL (0.00-0.02) Anion Gap 9.0 mmol/L (3-11) Est Creatinine Clear Calc Drug Dose 86.1 ml/min Estimated GFR () 121.4 Estimated GFR (Non- 104.7 BUN/Creatinine Ratio 8.7 (10-20) Calcium Level 8.3 mg/dl (8.5-10.1) Total Bilirubin 0.5 mg/dl (0.2-1) Direct Bilirubin 0.1 mg/dl (0-0.2) Aspartate Amino Transf (AST/SGOT) 14 U/L (15-37) Alanine Aminotransferase (ALT/SGPT) 20 U/L (12-78) Alkaline Phosphatase 82 U/L (45-117) Total Protein 7.4 gm/dl (6.4-8.2) Albumin 3.8 gm/dl (3.4-5.0) Lipase 110 U/L (73-393) Laboratory studies as stated above per my review. Medications Administered Medications (Trade) Dose Ordered Sig/Bakari Route Start Time Stop Time Status Last Admin Dose Admin Sodium Chloride 1,000 ml @ 999 mls/hr Q1H1M STAT IV 06/11/16 19:33 06/11/16 20:33 DC 06/11/16 19:55 999 MLS/HR Sodium Chloride (Nss 1000ml) 1,000 ml @ 150 mls/hr Q6H40M ONCE IV 06/11/16 19:33 06/11/16 22:02 DC 06/11/16 19:56 150 MLS/HR Hydromorphone HCl (Dilaudid Inj) 1 mg NOW STAT IV 06/11/16 19:33 06/11/16 19:36 DC 06/11/16 19:55 1 MG Ondansetron HCl (Zofran Inj) 4 mg NOW STAT IV 06/11/16 19:33 06/11/16 19:36 DC 06/11/16 19:56 4 MG ECG Indication: chest pain Rate (beats per minute): 78 Rhythm: normal sinus Findings: no acute ischemic change, no ectopy Comparison ECG Date: 06/06/16 Change: no significant change ED Course 1917: Past medical records reviewed. The patient was evaluated in room A12B, and a complete history and physical examination were performed. 1932: Zofran 4 mg IV, Dilaudid 1 mg IV, NSS 1000 ml @ 150 mls/hr IV, NSS 1000 ml @ 999 mls/hr IV 2119: I reassessed the patient at this time. He is feeling better and resting comfortably. I discussed the results and treatment plan with the patient. I answered all pertaining questions that he had. He expressed understanding and verbalized agreement. The patient will be discharged home. Medical Decision Differential diagnoses includes gallbladder disease, PE, pneumothorax, infection , electrolyte or metabolic abnormality. This patient comes in as described above. He has pain along the right lower chest and the ribs. He's had this for quite some [place] he was seen recently for the same symptoms and had an a very extensive workup at the time included a chest CT which showed no evidence of PE. He's concerned about his gallbladder. He has no peritonitis or surgical signs and has a negative Williamson sign. IV access established and he was hydrated with IV normal saline as outlined above. He is given IV Dilaudid and IV Zofran. His is at the bedside and driving. He has no significant electrolyte or metabolic abnormalities. He has nothing to suggest significant infection or sepsis or cardiac or pulmonary disease. Ultrasound of the gallbladder shows no evidence of gallbladder disease. I think this is more musculoskeletal he also does have a history of anxiety could be related. He has no findings to suggest shingles. He has been use ibuprofen for pain. Return if increasing pain, fever chills, or symptoms, any new problems concerns. He is happy with the plan and discharged to home. Impression Primary Impression: Right-sided chest pain Additional Impression: Rib pain on right side Scribe Attestation The scribe's documentation has been prepared under my direction and personally reviewed by me in its entirety. I confirm that the note above accurately reflects all work, treatment, procedures, and medical decision making performed by me. Departure Information Dispostion Home / Self-Care Referrals No Doctor, Assigned (PCP) Forms Call Back Authorization, HOME CARE DOCUMENTATION FORM, IMPORTANT VISIT INFORMATION Patient Instructions My [facility] [place] [employer] Additional Instructions Rest. Drink plenty of fluids. Return if: Increasing pain, shortness of breath, worsening symptoms, fever or chills, any new problems or concerns Use ibuprofen 400 mg every 6 hours, take with food. Follow-up with your doctor in 1-2 days for recheck. Problem Qualifiers
[2016-06-11 21:34] VITALS: BP 137/73; PULSE 79; O2SAT 98
== END 2016-06-11 21:35 | disposition home or self-care (01) ==
LOC: C.EDB 19:04 → C.EDA 21:35
DX: R07.89 Other chest pain (principal); R07.81 Pleurodynia; F32.9 Major depressive disorder, single episode, unspecified; Z79.52 Long term (current) use of systemic steroids; Z79.899 Other long term (current) drug therapy

== ENCOUNTER → 2016-09-01 | Outpatient (CLI) | payer OTHER ==
[~2016-09-01] MED LIST changes: +FAMO20TA12 PO; -HYDR5SYP11 PO; +ONDA4TAB10 SL; +PRT40 PO; +PRZ/40 PO; +TRAZ50TA35 PO; +VST25HP PO
--- NOTE | 2016-09-01 16:45 | DIAGNOSTIC IMAGING REPORT ---
TWO VIEW CHEST CLINICAL HISTORY: Renal mass. FINDINGS: PA and lateral chest radiographs are compared to study dated 06/11/16 and correlated with chest CT dated 06/06/2016. The heart is enlarged. The pulmonary vasculature is noncongested. The lungs and pleural spaces are clear. No pulmonary nodules are identified. Note that chest x-ray is insensitive in detecting pulmonary nodules. There is no pneumothorax. The bony thorax appears intact. IMPRESSION: Cardiomegaly with no active disease in the chest. Electronically signed by: Kev Bryant M.D. 09/01/2016 4:43 PM Dictated Date/Time: 09/01/2016 4:42 PM
[2016-09-01 17:16] LABS: ALT/SGPT 23 U/L (12-78); AST/SGOT 14 U/L (15-37); BLOOD UREA NITROGEN 9 mg/dl (7-18); CALCIUM 7.6 mg/dl (8.5-10.1); CARBON DIOXIDE 26 mmol/L (21-32); CHLORIDE 108 mmol/L (98-107); CREATININE 0.96 mg/dl (0.60-1.40); GLUCOSE 162 mg/dl (70-99); POTASSIUM 3.5 mmol/L (3.5-5.1); SODIUM 142 mmol/L (136-145)
[2016-09-01 17:19] LABS: ALB/GLOB RATIO 1.2 (0.9-2); ALKALINE PHOSPHATASE 74 U/L (45-117)
== END | disposition home or self-care (01) ==
LOC: C.LAB 16:00
PROVIDERS: ATTEND Urology
DX: N28.89 Other specified disorders of kidney and ureter (principal)

== ENCOUNTER → 2016-09-05 | Outpatient (CLI) | payer OTHER ==
[~2016-09-05] MED LIST changes: +OPTIRAY 320 IV PRN
--- NOTE | 2016-09-05 14:01 | DIAGNOSTIC IMAGING REPORT ---
CT UROGRAM CLINICAL HISTORY: Renal mass status post cryoablation. COMPARISON STUDY: Prior abdominal CT scans, most recently dated 08/20/2015. TECHNIQUE: Before and following the IV administration of 94 cc of Optiray 320, CT urogram of the abdomen and pelvis is performed from the lung bases to the proximal femora. Images are reviewed in the axial, sagittal, and coronal planes. IV contrast was administered without complication. CT DOSE: 606.62 mGy.cm FINDINGS: Lung bases: The heart is normal in size and without pericardial effusion. The lung bases are clear. Liver: The contrast-enhanced liver is normal in size, contour, and attenuation. There is no intrahepatic biliary ductal dilatation. The hepatic veins and portal veins are patent. Gallbladder: Unremarkable. Spleen: Normal in size and attenuation. Pancreas: Unremarkable. Adrenal glands: Unremarkable. Kidneys and ureters: The contrast enhanced kidneys are normal in size and without hydronephrosis. There are no renal calculi identified on the unenhanced images. The kidneys enhance and excrete symmetrically. There is cortical scarring seen in the posterior interpolar right kidney at the site of the previously characterized renal mass. There is no evidence of recurrent or residual enhancing mass lesion at the ablation site. No enhancing lesion is seen in either kidney on today's examination. There is no evidence of urothelial lesion within the renal pelvis bilaterally or along the course of either ureter. Abdominal vasculature: The abdominal aorta is normal in course and caliber. Bowel: The small bowel and colon are normal in course and caliber. The appendix is well-visualized and normal. Peritoneum: There is no intraperitoneal free air or abdominal ascites. There is a tiny fat-containing umbilical hernia. Lymphadenopathy: None. Pelvic viscera: The bladder, prostate, and seminal vesicles are normal in appearance. Skeletal structures: No destructive bony lesions are seen. IMPRESSION: 1. Again seen is cortical scarring in the posterior interpolar right kidney consistent with a history of previous cryoablation. There is no evidence of recurrent/residual enhancing mass lesion at the ablation site. 2. No enhancing mass lesion is seen within either kidney on today's examination. 3. There is no evidence of metastatic disease in the abdomen or pelvis. Electronically signed by: Kev Bryant M.D. 09/05/2016 2:00 PM Dictated Date/Time: 09/05/2016 1:47 PM
== END | disposition home or self-care (01) ==
LOC: C.CTS 13:17
PROVIDERS: ATTEND Urology
DX: N28.89 Other specified disorders of kidney and ureter (principal)

== ENCOUNTER 2016-09-07 02:52 | Inpatient (IN) | payer OTHER ==
[~2016-09-07] VITALS: Ht 154.9 cm; Wt 64.5 kg
[2016-09-07] VITALS (9 sets, daily range): BP systolic 87–137; BP diastolic 60–87; PULSE 67–89; TEMP 36.4–37.1; O2SAT 93–98; Ht 154.9 cm; Wt 64.5 kg
[~2016-09-07 02:52] MED LIST changes: -FAMO20TA12 PO; -ONDA4TAB10 SL; -OPTIRAY 320 IV PRN; -PRT40 PO; -PRZ/40 PO; -TRAZ50TA35 PO; -VST25HP PO
[2016-09-07] MEDS ORDERED: SODIUM CHLORIDE 0.9% 1000ML 1,000 ML IV STA (03:04)
--- NOTE | 2016-09-07 03:08 | EMERGENCY ROOM VISIT NOTE ---
History Report prepared by Alexander: Jeffrey Salcedo Under the Supervision of: Dr. Elkin Gonzalez D.O. First contact with patient: 02:57 Chief Complaint: OVERDOSE (INTENTIONAL) Stated Complaint: OVERDOSE History of Present Illness The patient is a 45 year old male who presents to the Emergency Room with an acute overdose that occurred between 2099 and 2299. The patient admits that he took 15 Prozac 40 mg tabs along with some alcohol. He was feeling suicidal. The states that he took the pills between 2099 and 2299. He denies Tylenol or street drug consumption. The patient currently complains of chest pain and dizziness. He denies vomiting. The patient came to the ED via ambulance. Mobile Crisis is involved in the case. The patient states that is scheduled to have a kidney removed because of a cyst. Source of History: patient Onset: [id number] Position: other (global) Quality: other (overdose) Timing: other (acute) Associated Symptoms: + chest pain, No vomiting Review of Systems See HPI for pertinent positives and negatives. A total of ten systems were reviewed and were otherwise negative. Past Medical & Surgical Medical Problems: (1) Alcohol abuse (2) Anxiety disorder (3) Depression (4) Diverticulosis Colon (W/O Ment Of Hemorrhage) (5) FAMILY DISRUPTION D/T DIVORCE OR LEGAL SEPARATION (6) Hirschsprung's Disease (7) History of - depression (8) Intentional SSRI (selective serotonin reuptake inhibitor) overdose (9) Kidney disease Family History Cancer Heart disease Lung disease Social History Smoking Status: Never Smoker Alcohol Use: occasionally Drug Use: none Marital Status: Housing Status: lives with family Occupation Status: employed Current/Historical Medications Scheduled Fluoxetine Hcl (Prozac), 40 MG PO DAILY Scheduled PRN Hydroxyzine HCl (Hydroxyzine Pamoate), 25 MG PO UD PRN for Anxiety Trazodone Hcl (Trazodone), 50 MG PO HS PRN for Sleep Allergies Coded Allergies: Citalopram (Verified Allergy, Severe, ANAPHYLAXIS, uses Prozac, 09/07/16) Gabapentin (Verified Allergy, Severe, LIGHT HEADED, 09/07/16) Penicillins (Verified Allergy, Unknown, ANAPHYLAXIS, 09/07/16) as child had pcn and stopped breathing Physical Exam Vital Signs Date Time Temp Pulse Resp B/P Pulse Ox O2 Delivery O2 Flow Rate FiO2 09/07/16 04:30 85 23 97/66 96 Room Air 09/07/16 03:08 Room Air 09/07/16 03:08 94 Room Air 09/07/16 03:00 36.7 86 23 164/102 95 Room Air 09/07/16 02:59 73 Physical Exam GENERAL: Awake, alert, alcohol on breath, writhing in bed but with no seizure activity. HENT: Normocephalic, atraumatic. Oropharynx unremarkable. EYES: Normal conjunctiva. Sclera non-icteric. NECK: Supple. No nuchal rigidity. FROM. No JVD. RESPIRATORY: Clear to auscultation. CARDIAC: Mildly tachycardic, normal rhythm. Extremities warm and well perfused. Pulses equal. ABDOMEN: Soft, non-distended. No tenderness to palpation. No rebound or guarding. No masses. RECTAL: Deferred. MUSCULOSKELETAL: Chest examination reveals no tenderness. The back is symmetrical on inspection without obvious abnormality. There is no CVA tenderness to palpation. No joint edema. LOWER EXTREMITIES: Calves are equal size bilaterally and non-tender. No edema. No discoloration. NEURO: Normal sensorium. No sensory or motor deficits noted. SKIN: No rash or jaundice noted. PSYCH: Depressed, suicidal. Medical Decision & Procedures Laboratory Results 09/07/16 03:25 Red Blood Count 4.54, Mean Corpuscular Volume 92.3, Mean Corpuscular Hemoglobin 32.4, Mean Corpuscular Hemoglobin Concent 35.1, Mean Platelet Volume 10.5, Neutrophils (%) (Auto) 77.7, Lymphocytes (%) (Auto) 10.3, Monocytes (%) (Auto) 9.9, Eosinophils (%) (Auto) 1.8, Basophils (%) (Auto) 0.1, Neutrophils # (Auto) 7.70, Lymphocytes # (Auto) 1.02, Monocytes # (Auto) 0.98, Eosinophils # (Auto) 0.18, Basophils # (Auto) 0.01 09/07/16 03:25 Test 09/07/16 03:15 09/07/16 03:25 09/07/16 03:30 Urine Color YELLOW Urine Appearance CLEAR (CLEAR) Urine pH 6.0 (4.5-7.5) Urine Specific [place] 1.006 (1.000-1.030) Urine Protein NEG (NEG) Urine Glucose (UA) NEG (NEG) Urine Ketones NEG (NEG) Urine Occult Blood NEG (NEG) Urine Nitrite NEG (NEG) Urine Bilirubin NEG (NEG) Urine Urobilinogen NEG (NEG) Urine Leukocyte Esterase NEG (NEG) Urine Opiates Screen NEG (NEG) Urine Methadone, Qualitative NEG (NEG) Urine Barbiturates NEG (NEG) Urine Phencyclidine (PCP) Level NEG (NEG) Ur Amphetamine/Methamphetamine NEG (NEG) MDMA (Ecstasy) Screen NEG (NEG) Urine Benzodiazepines Screen NEG (NEG) Urine Cocaine Metabolite NEG (NEG) Urine Marijuana (THC) NEG (NEG) White Blood Count 9.91 K/uL (4.8-10.8) Red Blood Count 4.54 M/uL (4.7-6.1) Hemoglobin 14.7 g/dL (14.0-18.0) Hematocrit 41.9 % (42-52) Mean Corpuscular Volume 92.3 fL (80-100) Mean Corpuscular Hemoglobin 32.4 pg (25-34) Mean Corpuscular Hemoglobin Concent 35.1 g/dl (32-36) Platelet Count 196 K/uL (130-400) Mean Platelet Volume 10.5 fL (7.4-10.4) Neutrophils (%) (Auto) 77.7 % Lymphocytes (%) (Auto) 10.3 % Monocytes (%) (Auto) 9.9 % Eosinophils (%) (Auto) 1.8 % Basophils (%) (Auto) 0.1 % Neutrophils # (Auto) 7.70 K/uL (1.4-6.5) Lymphocytes # (Auto) 1.02 K/uL (1.2-3.4) Monocytes # (Auto) 0.98 K/uL (0.11-0.59) Eosinophils # (Auto) 0.18 K/uL (0-0.5) Basophils # (Auto) 0.01 K/uL (0-0.2) RDW Standard Deviation 43.9 fL (36.4-46.3) RDW Coefficient of Variation 13.2 % (11.5-14.5) Immature Granulocyte % (Auto) 0.2 % Immature Granulocyte # (Auto) 0.02 K/uL (0.00-0.02) Prothrombin Time 10.4 SECONDS (9.0-12.0) Prothromb Time International Ratio 1.0 (0.9-1.1) Activated Partial Thromboplast Time 25.3 SECONDS (21.0-31.0) Partial Thromboplastin Ratio 1.0 Anion Gap 11.0 mmol/L (3-11) Est Creatinine Clear Calc Drug Dose 118.9 ml/min Estimated GFR () 137.2 Estimated GFR (Non- 118.4 BUN/Creatinine Ratio 13.4 (10-20) Calcium Level 8.0 mg/dl (8.5-10.1) Total Bilirubin 0.3 mg/dl (0.2-1) Direct Bilirubin 0.1 mg/dl (0-0.2) Aspartate Amino Transf (AST/SGOT) 15 U/L (15-37) Alanine Aminotransferase (ALT/SGPT) 21 U/L (12-78) Alkaline Phosphatase 85 U/L (45-117) Total Creatine Kinase 83 U/L (39-308) Total Protein 6.8 gm/dl (6.4-8.2) Albumin 3.6 gm/dl (3.4-5.0) Lipase 180 U/L (73-393) Salicylates Level < 1.7 mg/dl (2.8-20) Acetaminophen Level 3 ug/ml (10-30) Ethyl Alcohol mg/dL 212.0 mg/dl (0-3) Bedside Glucose 84 mg/dl (70-99) Laboratory results reviewed by me Medications Administered Medications (Trade) Dose Ordered Sig/Bakari Route Start Time Stop Time Status Last Admin Dose Admin Sodium Chloride (Nss 1000ml) 1,000 ml @ 999 mls/hr Q1H1M STAT IV 09/07/16 03:04 09/07/16 04:04 DC 09/07/16 03:22 999 MLS/HR Lorazepam (Ativan Inj) 1 mg NOW STAT IV 09/07/16 03:40 09/07/16 03:41 DC 09/07/16 03:45 1 MG ECG Indication: toxicologic Rate (beats per minute): 69 Rhythm: normal sinus Findings: no acute ischemic change, other (normal axis, normal intervals) ED Course 0300: The patient was evaluated in room B7. A complete history and physical exam was performed. 0304: NSS 1000 ml @ 999 mls/hr. 0335: Discussed the case with Poison Control. 0340: Ativan 1 mg IV. 0420: Discussed the case with ELVIS Cabrales Hospitalist. The patient will be evaluated. Medical Decision Differential diagnosis includes ethanol intoxication, serotonin syndrome, depression, suicidal ideation, polypharmacy overdose. Resting in no distress of spoken to poison control patient did not have any tremors was not tachycardic or hypotensive. Patient will be admitted the hospitalist with psychiatry as a consultation Consults Time Called: [phone] Consulting Physician: ELVIS Cabrales Hospitalist. Returned Call: [phone] The patient will be evaluated. Impression Primary Impression: Overdose Additional Impression: Suicidal ideation Scribe Attestation The scribe's documentation has been prepared under my direction and personally reviewed by me in its entirety. I confirm that the note above accurately reflects all work, treatment, procedures, and medical decision making performed by me. Departure Information Dispostion Being Evaluated By Hospitalist Referrals Clint Andre M.D. (PCP) Patient Instructions My [facility] Problem Qualifiers
[2016-09-07] MEDS ORDERED: TRAZ50TA35 PO (03:32)
[2016-09-07] MEDS ORDERED: PRZ/40 PO (03:32)
[2016-09-07] MEDS ORDERED: VST25HP PO (03:32)
[2016-09-07 03:38] LABS: BASO % 0.1 %; BASO ABS # 0.01 K/uL (0-0.2); COMPLETE YES; EOS % 1.8 %; HEMATOCRIT 41.9 % (42-52); IG% 0.2 %; LYMPH % 10.3 %; LYMPH ABS # 1.02 K/uL (1.2-3.4); MEAN CELL VOLUME 92.3 fL (80-100); MEAN CORPUSCULAR HEMOGLOBIN 32.4 pg (25-34); MEAN CORPUSCULAR HGB CONC 35.1 g/dl (32-36); MEAN PLATELET VOLUME 10.5 fL (7.4-10.4); MONO % 9.9 %; NEUT % 77.7 %; PLATELET COUNT 196 K/uL (130-400); RED BLOOD COUNT 4.54 M/uL (4.7-6.1); WHITE BLOOD COUNT 9.91 K/uL (4.8-10.8)
[2016-09-07] MEDS ORDERED: LORAZEPAM 2 MG/ML 1 ML VIAL IV STA (03:40)
[2016-09-07 03:41] LABS: URINE APPEARANCE CLEAR (CLEAR); URINE BILIRUBIN NEG (NEG); URINE COLOR YELLOW; URINE NITRITE NEG (NEG); URINE SPECIFIC GRAVITY 1.006 (1.000-1.030); UROBILINOGEN NEG (NEG)
[2016-09-07 03:48] LABS: PROTHROMBIN TIME (PATIENT) 10.4 SECONDS (9.0-12.0)
[2016-09-07 03:53] LABS: MANUAL MICROSCOPIC REQUIRED? NO; REVIEW REQ? NO
[2016-09-07 04:02] LABS: BENZODIAZEPINE, URINE NEG (NEG); COCAINE,URINE NEG (NEG); PHENCYCLIDINE, URINE NEG (NEG)
[2016-09-07 04:03] LABS: BUN/CREATININE RATIO 13.4 (10-20); CREATININE 0.66 mg/dl (0.60-1.40); POTASSIUM 3.5 mmol/L (3.5-5.1)
[2016-09-07 04:25] LABS: ACETAMINOPHEN 3 ug/ml (10-30)
[2016-09-07] MEDS ORDERED: LORAZEPAM 2 MG/ML 1 ML VIAL IV PRN (04:30)
--- NOTE | 2016-09-07 05:38 | History and Physical ---
History & Physical Date & Time of Service: September 07, 2016 at 05:24 Chief Complaint: Overdose Primary Care Physician: Clint Andre M.D. History of Present Illness Source: patient, hospital records The patient is a 45-year-old male who presented to the emergency department for assessment for an acute overdose which he reports that he took 15 Prozac 40 mg tablets along with alcohol approximately 4-6 hours prior to arrival. He reports that he was feeling suicidal, and upon arrival to the ED primarily complaint of chest pain and dizziness. He denies nausea and vomiting. [employer] has been involved in his case. He is due to have a kidney removed due to these cysts in the near future. The patient remained sedated during my assessment, and this information was gathered from emergency department records and EMS. Past Medical/Surgical History Medical Problems: (1) Anxiety disorder Status: Chronic (2) Diverticulosis Colon (W/O Ment Of Hemorrhage) Status: Resolved (3) FAMILY DISRUPTION D/T DIVORCE OR LEGAL SEPARATION Status: Chronic (4) Hirschsprung's Disease Status: Resolved (5) History of - depression Status: Chronic (6) Kidney disease Status: Chronic Family History Cancer Heart disease Lung disease Social History Smoking Status: Never Smoker Smokeless Tobacco Use: No Alcohol Use: occasionally Drug Use: none Marital Status: Occupational Status: employed Immunizations History of Influenza Vaccine: N/A History of Tetanus Vaccine?: Unknown History of Pneumococcal: No History of Hepatitis B Vaccine: Unknown Multi-Drug Resistant Organisms History of MDRO: No Allergies Coded Allergies: Citalopram (Verified Allergy, Severe, ANAPHYLAXIS, uses Prozac, 09/07/16) Gabapentin (Verified Allergy, Severe, LIGHT HEADED, 09/07/16) Penicillins (Verified Allergy, Unknown, ANAPHYLAXIS, 09/07/16) as child had pcn and stopped breathing Home Medications Scheduled Fluoxetine Hcl (Prozac), 40 MG PO DAILY Scheduled PRN Hydroxyzine HCl (Hydroxyzine Pamoate), 25 MG PO UD PRN for Anxiety Trazodone Hcl (Trazodone), 50 MG PO HS PRN for Sleep Review of Systems The patient remained sedated during my assessment due in part to his toxic ingestion of Prozac, and he was also given lorazepam for sedation by ED staff, which therefore made his review of systems severely limited. Physical Exam Vital Signs Date Time Temp Pulse Resp B/P Pulse Ox O2 Delivery O2 Flow Rate FiO2 09/07/16 05:03 85 23 97/66 96 09/07/16 04:30 85 23 97/66 96 Room Air 09/07/16 03:08 Room Air 09/07/16 03:08 94 Room Air 09/07/16 03:00 36.7 86 23 164/102 95 Room Air 09/07/16 02:59 73 The patient is sedated, normocephalic and atraumatic, lying in bed and in no acute distress. HEENT--PERRL, mucous membranes and oropharynx dry. Neck--supple, no JVD or bruits, thyroid normal, trachea midline, no adenopathy. Heart--normal S1 and S2, no extra beats, no murmurs, rubs or gallops. Lungs--clear bilaterally, diminished throughout, no respiratory distress, no accessory muscle use. Abdomen--normal bowel sounds and soft, nontender and nondistended, no hernias or masses, no organomegaly. Extremities--no cyanosis, clubbing or edema. There are good distal pulses b/l. Dermatologic--normal skin turgor, normal color, warm and dry, no abnormal lymph nodes, no rash. Neurologic--cranial nerves II through XII grossly intact. Rheumatologic--limited due to sedation. Psychiatric--sedated. Diagnostics Laboratory Results Results Past 24 Hours Test 09/07/16 03:15 09/07/16 03:25 09/07/16 03:30 Range/Units Urine Color YELLOW Urine Appearance CLEAR CLEAR Urine pH 6.0 4.5-7.5 Urine Specific [place] 1.006 1.000-1.030 Urine Protein NEG NEG Urine Glucose (UA) NEG NEG Urine Ketones NEG NEG Urine Occult Blood NEG NEG Urine Nitrite NEG NEG Urine Bilirubin NEG NEG Urine Urobilinogen NEG NEG Urine Leukocyte Esterase NEG NEG Urine Opiates Screen NEG NEG Urine Methadone, Qualitative NEG NEG Urine Barbiturates NEG NEG Urine Phencyclidine (PCP) Level NEG NEG Ur Amphetamine/Methamphetamine NEG NEG MDMA (Ecstasy) Screen NEG NEG Urine Benzodiazepines Screen NEG NEG Urine Cocaine Metabolite NEG NEG Urine Marijuana (THC) NEG NEG White Blood Count 9.91 4.8-10.8 K/uL Red Blood Count 4.54 4.7-6.1 M/uL Hemoglobin 14.7 14.0-18.0 g/dL Hematocrit 41.9 42-52 % Mean Corpuscular Volume 92.3 80-100 fL Mean Corpuscular Hemoglobin 32.4 25-34 pg Mean Corpuscular Hemoglobin Concent 35.1 32-36 g/dl Platelet Count 196 130-400 K/uL Mean Platelet Volume 10.5 7.4-10.4 fL Neutrophils (%) (Auto) 77.7 % Lymphocytes (%) (Auto) 10.3 % Monocytes (%) (Auto) 9.9 % Eosinophils (%) (Auto) 1.8 % Basophils (%) (Auto) 0.1 % Neutrophils # (Auto) 7.70 1.4-6.5 K/uL Lymphocytes # (Auto) 1.02 1.2-3.4 K/uL Monocytes # (Auto) 0.98 0.11-0.59 K/uL Eosinophils # (Auto) 0.18 0-0.5 K/uL Basophils # (Auto) 0.01 0-0.2 K/uL RDW Standard Deviation 43.9 36.4-46.3 fL RDW Coefficient of Variation 13.2 11.5-14.5 % Immature Granulocyte % (Auto) 0.2 % Immature Granulocyte # (Auto) 0.02 0.00-0.02 K/uL Prothrombin Time 10.4 9.0-12.0 SECONDS Prothromb Time International Ratio 1.0 0.9-1.1 Activated Partial Thromboplast Time 25.3 21.0-31.0 SECONDS Partial Thromboplastin Ratio 1.0 Sodium Level 143 136-145 mmol/L Potassium Level 3.5 3.5-5.1 mmol/L Chloride Level 107 98-107 mmol/L Carbon Dioxide Level 25 21-32 mmol/L Anion Gap 11.0 3-11 mmol/L Blood Urea Nitrogen 9 7-18 mg/dl Creatinine 0.66 0.60-1.40 mg/dl Est Creatinine Clear Calc Drug Dose 118.9 ml/min Estimated GFR () 137.2 Estimated GFR (Non- 118.4 BUN/Creatinine Ratio 13.4 10-20 Random Glucose 92 70-99 mg/dl Calcium Level 8.0 8.5-10.1 mg/dl Total Bilirubin 0.3 0.2-1 mg/dl Direct Bilirubin 0.1 0-0.2 mg/dl Aspartate Amino Transf (AST/SGOT) 15 15-37 U/L Alanine Aminotransferase (ALT/SGPT) 21 12-78 U/L Alkaline Phosphatase 85 45-117 U/L Total Creatine Kinase 83 39-308 U/L Total Protein 6.8 6.4-8.2 gm/dl Albumin 3.6 3.4-5.0 gm/dl Lipase 180 73-393 U/L Salicylates Level < 1.7 2.8-20 mg/dl Acetaminophen Level 3 10-30 ug/ml Ethyl Alcohol mg/dL 212.0 0-3 mg/dl Bedside Glucose 84 70-99 mg/dl EKG EKG shows normal sinus rhythm at 69 bpm, no acute ST-T changes. Impression Assessment and Plan Intentional SSRI overdose with 15 Prozac 40 mg pills plus alcohol--patient will be admitted to the telemetry unit for close rhythm monitoring. He'll be kept nothing by mouth. Place on normal saline with potassium chloride 20 mEq at 125 ML's per hour. Perform serial EKGs. Will hold hydroxyzine and trazodone and Prozac. We'll have available lorazepam 0.5-1 mg IV every 6 hours when necessary agitation, Protonix 40 mg IV daily, Zofran 4 mg IV every 6 hours when necessary, and acetaminophen 650 mg IV every 6 hours when necessary pain or temperature We'll consult psychiatry. Renal cancer--CT scan performed 2 days ago shows no evidence of recurrence of renal cancer at the ablation site, and no signs of metastatic disease. Level of Care Telemetry Advanced Directives Existing Advance Directive: No Existing Living Will: No Existing Power of Crm Marketing Manager: No Resuscitation Status FULL RESUSCITATION VTE Prophylaxis VTE Risk Assessment Done? Y/N: Yes Risk Level: Moderate Given or contraindicated: SCD's
[2016-09-07] MEDS ORDERED: ONDANSETRON INJ 2 MG/ML 2 ML VIAL IV PRN (05:45)
[2016-09-07] MEDS: NSS + 20MEQ KCL 1000ML 1,000 ML IV SCH ×3 (08:02→22:17)
--- NOTE | 2016-09-07 10:22 | Progress Note ---
Medicine Progress Note Date & Time of Visit: September 07, 2016 at 10:10. Subjective pt is seen and examined by me, pt denies chest pain, SOB, Dizziness and LOC. Pt states he is little sleepy, Line of sight does not report any acute events, pt nurse does not report any arrhythmia on monitor. Pt denies nausea, vomiting and diarrhea. Pt denies blurry vision and headache. Pt denies abdominal pain and urinary symptoms. All 10 review of symptoms are reported negative. Objective Last 8 Hrs Date Time Temp Pulse Resp B/P Pulse Ox O2 Delivery O2 Flow Rate FiO2 09/07/16 08:00 Room Air 09/07/16 07:24 36.4 67 16 87/60 95 Room Air 09/07/16 05:20 36.5 81 19 133/86 94 Room Air 09/07/16 05:03 85 23 97/66 96 09/07/16 04:30 85 23 97/66 96 Room Air 09/07/16 03:08 Room Air 09/07/16 03:08 94 Room Air 09/07/16 03:00 36.7 86 23 164/102 95 Room Air 09/07/16 02:59 73 Physical Exam: General-NAD, awake and alert and orientedX3 Eyes- EOM intact. PERLLA Neck-supple and no adenopathy Lungs-CTA B/L, no wheezing and rhonchi Heart-S1, S2, RRR Abdomen-soft , NT, ND, Bs present Extremities-no pedal edema,ROM intact Neuro-no focal neuro deficit Laboratory Results: Last 24 Hours Test 09/07/16 03:15 09/07/16 03:25 09/07/16 03:30 Urine Color YELLOW Urine Appearance CLEAR Urine pH 6.0 Urine Specific [place] 1.006 Urine Protein NEG Urine Glucose (UA) NEG Urine Ketones NEG Urine Occult Blood NEG Urine Nitrite NEG Urine Bilirubin NEG Urine Urobilinogen NEG Urine Leukocyte Esterase NEG Urine Opiates Screen NEG Urine Methadone, Qualitative NEG Urine Barbiturates NEG Urine Phencyclidine (PCP) Level NEG Ur Amphetamine/Methamphetamine NEG MDMA (Ecstasy) Screen NEG Urine Benzodiazepines Screen NEG Urine Cocaine Metabolite NEG Urine Marijuana (THC) NEG White Blood Count 9.91 K/uL Red Blood Count 4.54 M/uL Hemoglobin 14.7 g/dL Hematocrit 41.9 % Mean Corpuscular Volume 92.3 fL Mean Corpuscular Hemoglobin 32.4 pg Mean Corpuscular Hemoglobin Concent 35.1 g/dl Platelet Count 196 K/uL Mean Platelet Volume 10.5 fL Neutrophils (%) (Auto) 77.7 % Lymphocytes (%) (Auto) 10.3 % Monocytes (%) (Auto) 9.9 % Eosinophils (%) (Auto) 1.8 % Basophils (%) (Auto) 0.1 % Neutrophils # (Auto) 7.70 K/uL Lymphocytes # (Auto) 1.02 K/uL Monocytes # (Auto) 0.98 K/uL Eosinophils # (Auto) 0.18 K/uL Basophils # (Auto) 0.01 K/uL RDW Standard Deviation 43.9 fL RDW Coefficient of Variation 13.2 % Immature Granulocyte % (Auto) 0.2 % Immature Granulocyte # (Auto) 0.02 K/uL Prothrombin Time 10.4 SECONDS Prothromb Time International Ratio 1.0 Activated Partial Thromboplast Time 25.3 SECONDS Partial Thromboplastin Ratio 1.0 Sodium Level 143 mmol/L Potassium Level 3.5 mmol/L Chloride Level 107 mmol/L Carbon Dioxide Level 25 mmol/L Anion Gap 11.0 mmol/L Blood Urea Nitrogen 9 mg/dl Creatinine 0.66 mg/dl Est Creatinine Clear Calc Drug Dose 118.9 ml/min Estimated GFR () 137.2 Estimated GFR (Non- 118.4 BUN/Creatinine Ratio 13.4 Random Glucose 92 mg/dl Calcium Level 8.0 mg/dl Total Bilirubin 0.3 mg/dl Direct Bilirubin 0.1 mg/dl Aspartate Amino Transf (AST/SGOT) 15 U/L Alanine Aminotransferase (ALT/SGPT) 21 U/L Alkaline Phosphatase 85 U/L Total Creatine Kinase 83 U/L Total Protein 6.8 gm/dl Albumin 3.6 gm/dl Lipase 180 U/L Salicylates Level < 1.7 mg/dl Acetaminophen Level 3 ug/ml Ethyl Alcohol mg/dL 212.0 mg/dl Bedside Glucose 84 mg/dl Diagnostic Imaging: none Other Studies: none Assessment & Plan Intentional SSRI overdose with 15 Prozac 40 mg pills plus alcohol - Continue telemetry unit for close rhythm monitoring. - NPO for now. - Continue normal saline with potassium chloride 20 mEq at 125 ML's per hour. - EKGs serial so far no abnormal rhythm. - Hold hydroxyzine and trazodone and Prozac. We'll have available lorazepam 0.5 -1 mg IV every 6 hours when necessary agitation, Protonix 40 mg IV daily, Zofran 4 mg IV every 6 hours when necessary, and acetaminophen 650 mg IV every 6 hours when necessary pain or temperature. - psychiatry consult pending Renal cancer--CT scan performed 2 days ago shows no evidence of recurrence of renal cancer at the ablation site, and no signs of metastatic disease. Continued [facility] stay due to: inadequate po fluid intake, home environment unsafe for pt Discharge planning: uncertain Consultants: Psychiatry consult Procedures: none Vaccinations: none Current Inpatient Medications: Current Inpatient Medications Medications (Trade) Dose Ordered Sig/Bakari Route Start Time Stop Time Status Last Admin Dose Admin Potassium Chloride/Sodium Chloride (Nss + 20meq KCl 1000ml) 1,000 ml @ 125 mls/hr Q8H IV 09/07/16 06:15 10/07/16 06:14 09/07/16 08:02 125 MLS/HR Ondansetron HCl (Zofran Inj) 4 mg Q6H PRN IV 09/07/16 04:30 10/07/16 04:29 Lorazepam (Ativan Inj) 0.5 mg Q4H PRN IV 09/07/16 04:30 10/07/16 04:29 Lorazepam 1 mg 1 mg Q4H PRN IV 09/07/16 04:30 10/07/16 04:29 Pantoprazole Sodium/Syringe (Protonix Inj/ Syringe) 10 ml @ 5 mls/min DAILY@11 IV 09/07/16 11:00 10/07/16 10:59 Ondansetron HCl 4 mg 4 mg Q6H PRN IV 09/07/16 05:45 10/07/16 05:44 Acetaminophen (Ofirmev Iv) 100 ml @ 400 mls/hr Q8H PRN IV 09/07/16 05:45 10/07/16 05:44
[2016-09-07] MEDS: PANTOprazole INJ 40 MG in SYRINGE 0 ML IV SCH (11:09)
[2016-09-07] MEDS: ONDANSETRON INJ 2 MG/ML 2 ML VIAL IV PRN ×3 (11:09→22:22)
[2016-09-07] MEDS: ACETAMINOPHEN IV 100 ML IV PRN (11:10)
[2016-09-07] MEDS ORDERED: LORAZEPAM 1 MG TAB PO PRN (16:45)
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
[2016-09-07] MEDS: THIAMINE HCL 100 MG TAB PO SCH (17:48)
[2016-09-08] VITALS (7 sets, daily range): BP systolic 120–142; BP diastolic 73–93; PULSE 70–95; TEMP 36.5–37.1; O2SAT 93–96
[2016-09-08] MEDS: ACETAMINOPHEN IV 100 ML IV PRN (00:02)
[2016-09-08] MEDS ORDERED: MoRPHine SULFATE 4 MG/ML 1 ML CARP\\VIAL IV STA (00:52)
--- NOTE | 2016-09-08 00:54 | Progress Note ---
Progress Note Date of Service September 08, 2016. Progress Note abdominal pain and nausea overnight. Administered morphine 3 mg x 1 IV. PDMP reviewed and no issues identified.
[2016-09-08] MEDS: ONDANSETRON INJ 2 MG/ML 2 ML VIAL IV PRN ×2 (01:07→07:38)
[2016-09-08] MEDS ORDERED: PROMETHAZINE HCL INJ 12.5 MG in SODIUM CHLORIDE 0.9% 50ML 50 ML IV STA (01:38)
[2016-09-08 02:04] LABS: BASO % 0.1 %; BASO ABS # 0.01 K/uL (0-0.2); COMPLETE YES; EOS % 5.2 %; HEMATOCRIT 41.6 % (42-52); IG% 0.4 %; LYMPH % 14.5 %; MEAN CELL VOLUME 92.9 fL (80-100); MEAN CORPUSCULAR HGB CONC 33.4 g/dl (32-36); MEAN PLATELET VOLUME 10.7 fL (7.4-10.4); MONO % 9.9 %; NEUT % 69.9 %; PLATELET COUNT 169 K/uL (130-400); RED BLOOD COUNT 4.48 M/uL (4.7-6.1); WHITE BLOOD COUNT 6.88 K/uL (4.8-10.8)
[2016-09-08] MEDS ORDERED: HYDROmorphone INJ 1 MG/ML SYR IV STA (02:21)
[2016-09-08 02:23] LABS: ALT/SGPT 18 U/L (12-78); AST/SGOT 12 U/L (15-37); BLOOD UREA NITROGEN 6 mg/dl (7-18); BUN/CREATININE RATIO 7.2 (10-20); CALCIUM 7.3 mg/dl (8.5-10.1); CARBON DIOXIDE 28 mmol/L (21-32); CHLORIDE 110 mmol/L (98-107); CREATININE 0.86 mg/dl (0.60-1.40); GLUCOSE 91 mg/dl (70-99); POTASSIUM 3.9 mmol/L (3.5-5.1); SODIUM 146 mmol/L (136-145)
[2016-09-08 02:25] LABS: ALB/GLOB RATIO 1.1 (0.9-2); ALKALINE PHOSPHATASE 78 U/L (45-117)
[2016-09-08] MEDS ORDERED: HYDROmorphone INJ 1 MG/ML SYR ONE (02:45)
[2016-09-08] MEDS ORDERED: ASPIRIN 81 MG CHEW PO STA (03:16)
[2016-09-08] MEDS: CALCIUM CARBONATE 500 MG CHEWABLE PO PRN ×2 (03:53→19:01)
[2016-09-08] MEDS ORDERED: NURSING VERBAL MED ORDER ONE (04:45)
[2016-09-08] MEDS ORDERED: ALUMINUM/MAGNESIUM SUSP 18 ML, LIDOCAINE HCL 2% VISCOUS SOLN 6 ML, BARCODE IDENTIFIER 1 EA PO ONE ×2 (05:30)
[2016-09-08] MEDS: NSS + 20MEQ KCL 1000ML 1,000 ML IV SCH ×3 (05:45→22:09)
[2016-09-08 06:23] LABS: BASO % 0.3 %; BASO ABS # 0.02 K/uL (0-0.2); COMPLETE YES; EOS % 6.2 %; HEMATOCRIT 42.3 % (42-52); IG% 0.4 %; LYMPH % 18.3 %; LYMPH ABS # 1.24 K/uL (1.2-3.4); MEAN CELL VOLUME 93.4 fL (80-100); MEAN CORPUSCULAR HEMOGLOBIN 30.7 pg (25-34); MEAN CORPUSCULAR HGB CONC 32.9 g/dl (32-36); MEAN PLATELET VOLUME 10.7 fL (7.4-10.4); MONO % 12.3 %; NEUT % 62.5 %; PLATELET COUNT 186 K/uL (130-400); RED BLOOD COUNT 4.53 M/uL (4.7-6.1); WHITE BLOOD COUNT 6.76 K/uL (4.8-10.8)
[2016-09-08 06:32] LABS: PROTHROMBIN TIME (PATIENT) 10.5 SECONDS (9.0-12.0)
[2016-09-08 06:53] LABS: ALKALINE PHOSPHATASE 79 U/L (45-117); ALT/SGPT 18 U/L (12-78); AST/SGOT 14 U/L (15-37); BLOOD UREA NITROGEN 6 mg/dl (7-18); BUN/CREATININE RATIO 6.3 (10-20); CALCIUM 7.6 mg/dl (8.5-10.1); CARBON DIOXIDE 31 mmol/L (21-32); CHLORIDE 109 mmol/L (98-107); CREATININE 0.88 mg/dl (0.60-1.40); GLUCOSE 71 mg/dl (70-99); MAGNESIUM 2.3 mg/dl (1.8-2.4); POTASSIUM 4.2 mmol/L (3.5-5.1); SODIUM 144 mmol/L (136-145)
--- NOTE | 2016-09-08 07:24 | DIAGNOSTIC IMAGING REPORT ---
KUB CLINICAL HISTORY: Evaluate for obstruction. History of Hirschsprung's. COMPARISON STUDY: CT of the abdomen and pelvis September 05, 2016 FINDINGS: The bowel gas pattern is normal. There is no evidence for a bowel obstruction. No renal or ureteral calculi are identified. IMPRESSION: No evidence of a bowel obstruction. Electronically signed by: Jeremias Garcia M.D. 09/08/2016 7:23 AM Dictated Date/Time: 09/08/2016 7:21 AM
--- NOTE | 2016-09-08 07:34 | DIAGNOSTIC IMAGING REPORT ---
CHEST ONE VIEW PORTABLE CLINICAL HISTORY: Chest pain. COMPARISON STUDY: Chest radiograph September 01, 2016. FINDINGS: Lung volumes are normal. There is no pneumothorax or pleural effusion. The patient is rotated. Cardiomediastinal silhouette is stable. There is no evidence of pulmonary edema. Mild bibasilar opacities favor atelectasis. IMPRESSION: 1. Mild bibasilar opacities which favor atelectasis. 2. No evidence of pulmonary edema. Electronically signed by: Jeremias Garcia M.D. 09/08/2016 7:32 AM Dictated Date/Time: 09/08/2016 7:31 AM
[2016-09-08] MEDS: LORAZEPAM 2 MG/ML 1 ML VIAL IV PRN ×2 (07:38→20:06)
--- NOTE | 2016-09-08 09:57 | Hospitalist Progress Note ---
Hospitalist Progress Note Date of Service September 08, 2016. Subjective Pt evaluation today including: conversation w/ patient, physical exam, chart review, lab review, review of studies, review of inpatient medication list Patient seen and evaluated. Had mid-abdominal pain/CP overnight with nausea. No emesis. He reports that he chronically gets these pains and reports extensive abdominal surgery 2/2 Hirsschsprung's disease. Abdomen with multiple incisions with pain located predominantly at incision line. Possible adhesional pain exacerbated by a likely gastritis. He had BM yesterday but none today but + flatus. KUB without evidence of obstruction. Reporting nausea and pain is slightly worse then his normal since his surgery. He states he intermittently gets shaky with some anxiousness. He appears slightly lethargic but follows commands and answers questions appropriately. Constitutional: + fatigue, No chills, No fever Eyes: No worsening of vision ENT: No sore throat, No trouble swallowing Respiratory: No shortness of breath Abdomen: + nausea, + pain (mid-abdomen), No GI bleeding, No constipation, No diarrhea, No vomiting Musculoskeletal: No calf pain, No swelling Male : No dysuria Psychiatric: + anxiety, + substance abuse Heme: No abnormal bleeding/bruising, No clotting problems Skin: No rash Medications Current Inpatient Medications Medications (Trade) Dose Ordered Sig/Bakari Route Start Time Stop Time Status Last Admin Dose Admin Potassium Chloride/Sodium Chloride (Nss + 20meq KCl 1000ml) 1,000 ml @ 125 mls/hr Q8H IV 09/07/16 06:15 10/07/16 06:14 09/08/16 05:45 125 MLS/HR Lorazepam (Ativan Inj) 0.5 mg Q4H PRN IV 09/07/16 04:30 10/07/16 04:29 Lorazepam 1 mg 1 mg Q4H PRN IV 09/07/16 04:30 10/07/16 04:29 09/08/16 07:38 1 MG Pantoprazole Sodium 40 mg/ Syringe 10 ml @ 5 mls/min DAILY@11 IV 09/07/16 11:00 10/07/16 10:59 09/07/16 11:09 5 MLS/MIN Acetaminophen (Ofirmev Iv) 100 ml @ 400 mls/hr Q8H PRN IV 09/07/16 05:45 10/07/16 05:44 09/08/16 00:02 400 MLS/HR Thiamine HCl (Vitamin B-1 Tab) 100 mg Q24H PO 09/07/16 17:00 10/07/16 16:59 09/07/16 17:48 100 MG Lorazepam (Ativan Tab) PRN Dosing -Active Protocol UD PRN PO 09/07/16 16:45 10/07/16 16:44 Ondansetron HCl (Zofran Inj) 4 mg Q4H PRN IV 09/08/16 01:00 10/08/16 00:59 09/08/16 07:38 4 MG Calcium Carbonate (Tums Chew Tab) 500 mg TID PRN PO 09/08/16 03:30 10/08/16 03:29 09/08/16 03:53 500 MG Objective Vital Signs Date Time Temp Pulse Resp B/P Pulse Ox O2 Delivery O2 Flow Rate FiO2 09/08/16 08:17 36.8 78 20 126/80 94 Room Air 09/08/16 08:00 Room Air 09/08/16 04:00 Room Air 09/08/16 03:47 36.8 82 20 142/90 93 Room Air 09/07/16 23:59 Room Air 09/07/16 23:51 37.0 89 20 137/87 93 Room Air 09/07/16 20:00 93 Room Air 09/07/16 18:35 37.1 86 18 119/76 93 Room Air 09/07/16 16:00 95 Room Air 09/07/16 15:07 36.9 83 18 118/74 95 Room Air 09/07/16 12:00 Room Air 09/07/16 12:00 36.5 88 18 128/83 98 Room Air 09/07/16 11:02 36.5 84 16 99/62 97 Room Air Physical Exam General Appearance: WD/WN, no apparent distress Eyes: sclerae normal ENT: hearing grossly normal Neck: supple, no JVD, trachea midline Respiratory/Chest: lungs clear, normal breath sounds, no respiratory distress, no accessory muscle use Cardiovascular: regular rate, rhythm, no gallop, no murmur Abdomen: normal bowel sounds, non tender (subjective but no tenderness with palpation; no guarding or rigidity), soft, + distended (baseline per patient) Extremities: no pedal edema Neurologic/Psychiatric: alert, oriented x 3, + pertinent finding (lethargic but easily awakens; R facial droop) Skin: normal color, warm/dry Laboratory Results Last 24 Hours Test 09/08/16 01:50 09/08/16 06:03 White Blood Count 6.88 K/uL 6.76 K/uL Red Blood Count 4.48 M/uL 4.53 M/uL Hemoglobin 13.9 g/dL 13.9 g/dL Hematocrit 41.6 % 42.3 % Mean Corpuscular Volume 92.9 fL 93.4 fL Mean Corpuscular Hemoglobin 31.0 pg 30.7 pg Mean Corpuscular Hemoglobin Concent 33.4 g/dl 32.9 g/dl Platelet Count 169 K/uL 186 K/uL Mean Platelet Volume 10.7 fL 10.7 fL Neutrophils (%) (Auto) 69.9 % 62.5 % Lymphocytes (%) (Auto) 14.5 % 18.3 % Monocytes (%) (Auto) 9.9 % 12.3 % Eosinophils (%) (Auto) 5.2 % 6.2 % Basophils (%) (Auto) 0.1 % 0.3 % Neutrophils # (Auto) 4.80 K/uL 4.22 K/uL Lymphocytes # (Auto) 1.00 K/uL 1.24 K/uL Monocytes # (Auto) 0.68 K/uL 0.83 K/uL Eosinophils # (Auto) 0.36 K/uL 0.42 K/uL Basophils # (Auto) 0.01 K/uL 0.02 K/uL RDW Standard Deviation 44.4 fL 44.7 fL RDW Coefficient of Variation 13.2 % 13.2 % Immature Granulocyte % (Auto) 0.4 % 0.4 % Immature Granulocyte # (Auto) 0.03 K/uL 0.03 K/uL Sodium Level 146 mmol/L 144 mmol/L Potassium Level 3.9 mmol/L 4.2 mmol/L Chloride Level 110 mmol/L 109 mmol/L Carbon Dioxide Level 28 mmol/L 31 mmol/L Anion Gap 8.0 mmol/L 4.0 mmol/L Blood Urea Nitrogen 6 mg/dl 6 mg/dl Creatinine 0.86 mg/dl 0.88 mg/dl Est Creatinine Clear Calc Drug Dose 90.4 ml/min 88.5 ml/min Estimated GFR () 123.1 121.9 Estimated GFR (Non- 106.2 105.2 BUN/Creatinine Ratio 7.2 6.3 Random Glucose 91 mg/dl 71 mg/dl Calcium Level 7.3 mg/dl 7.6 mg/dl Total Bilirubin 0.4 mg/dl 0.5 mg/dl Aspartate Amino Transf (AST/SGOT) 12 U/L 14 U/L Alanine Aminotransferase (ALT/SGPT) 18 U/L 18 U/L Alkaline Phosphatase 78 U/L 79 U/L Troponin I < 0.015 ng/ml < 0.015 ng/ml Total Protein 6.1 gm/dl 6.4 gm/dl Albumin 3.2 gm/dl 3.3 gm/dl Globulin 2.9 gm/dl Albumin/Globulin Ratio 1.1 Prothrombin Time 10.5 SECONDS Prothromb Time International Ratio 1.0 Activated Partial Thromboplast Time 24.7 SECONDS Partial Thromboplastin Ratio 1.0 Magnesium Level 2.3 mg/dl Direct Bilirubin 0.1 mg/dl Assessment and Plan Intentional SSRI Overdose: Prozac 40 mg x 15 pills + ETOH - Telemetry - rhythm monitoring - no arrhythmias overnight - NSS + 20 mEq KCL at 125 mL/hr - Hold home regimen - Prozac, Trazadone, and Hydroxyzine - Protonix 40 mg IV daily - Psychiatry following - appreciate input ETOH Dependence: - AWSS Protocol Abdominal Pain with Nausea: - Reports intermittent pain and nausea that is similar to current symptoms 2/2 bowel resection from Hirschsprungs disease - KUB without evidence of obstruction - Zofran PRN and Maalox Renal Cancer: CT (09/05/16) - no evidence of renal CA at ablation site - no metastatic disease DVT Prophylaxis: SCDs Code Status: FULL RESUSCITATION Disposition: - Would like to better control abdominal pain - "thinking about inpatient mental health" - hopefully tomorrow? -- Voluntary commitment vs 302 Continued [facility] stay due to: multiple IV medications needed Discharge planning: other (psychiatriac facility)
[2016-09-08] MEDS: PANTOprazole INJ 40 MG in SYRINGE 0 ML IV SCH (11:05)
[2016-09-08] MEDS ORDERED: FAMOTIDINE 20 MG TAB PO ONE (14:15)
[2016-09-08] MEDS: THIAMINE HCL 100 MG TAB PO SCH (15:34)
[2016-09-08] MEDS: FAMOTIDINE 20 MG TAB PO SCH (19:01)
[2016-09-09 04:08] VITALS: BP 124/76; PULSE 82; TEMP 36.9; O2SAT 95
--- NOTE | 2016-09-09 04:57 | GASTROINTESTINAL CONSULTATION ---
DATE OF CONSULTATION: 09/08/2016 RACE: . ATTENDING PHYSICIAN: Dr. Jain. CONSULTING PHYSICIAN: Dr. Mcwilliams. REASON FOR CONSULTATION: Abdominal pain, nausea and vomiting. HISTORY OF PRESENT ILLNESS: Zain Rey is a 45-year-old male who presented to the Department of Emergency Medicine on 09/07/2016 after an acute overdose of SSRI tablets as well as alcohol. He stated that he had been quite upset with pending divorce with his and then ingested the pills and alcohol prior to coming to the ER. He was subsequently admitted and was noted to have no EKG abnormalities, was given normal saline via IV. Serial EKGs were ordered, and the patient was placed in the telemetry unit. Psychiatry was consulted, and he was seen yesterday by the psychiatry team. He was felt to be high risk, and recommendations by the psychiatry team were for inpatient psychiatric care. He has had normal liver panel throughout his hospitalization and a stable H\\T\\H. The time that I saw the patient today he stated that his abdominal pain was improved from prior, though he does report having a history of Hirschsprung's disease and had undergone a prior bowel resection. He denied any further nausea or vomiting. He does state that he is in the process of having a colonoscopy as an outpatient and has not had one in "a few years." He denies any hematemesis, melena, hematochezia, jaundice, acholic stools, dark urine, pruritus or fatigue. He has no further complaints. PAST MEDICAL HISTORY: Significant for depression, Hirschsprung's disease. His other past medical history includes anxiety and chronic kidney disease. PAST SURGICAL HISTORY: Includes inguinal hernia repair as well as ex lap and questionable history of bowel resection. ALLERGIES: CITALOPRAM, GABAPENTIN AND PENICILLINS. MEDICATIONS: At the present time include Protonix 40 mg p.o. q.a.m., Pepcid 20 mg p.o. b.i.d., calcium carbonate 500 mg p.o. t.i.d. p.r.n., Zofran 4 mg IV q. 4 p.r.n. nausea, thiamine 100 mg p.o. q. 24 hours and Tylenol as needed for pain, Ativan 1 mg IV q. 4 p.r.n. anxiety. SOCIAL HISTORY: He is currently in the process of getting a . He does drink alcohol. He denies any illicit drug use. Denies tobacco use. FAMILY HISTORY: Negative for GI malignancy or inflammatory bowel disease. REVIEW OF SYSTEMS: Negative 10-system review other than pertinent positives listed in the HPI. PHYSICAL EXAMINATION: VITAL SIGNS: Temp 37.0, pulse 95, respirations 20, blood pressure 120/82, pulse ox 94% on room air. GENERAL: Awake, cooperative, talkative, no acute distress. HEAD: Normocephalic, atraumatic. EYES: Pupils equally round. Extraocular muscles are intact. ENT: External evaluation of ears and nose is normal. Oropharynx is clear. NECK: Soft and supple. CHEST: Decreased breath sounds, bilateral bases. CARDIOVASCULAR SYSTEM: Regular rate and rhythm. ABDOMEN: Soft, nontender. Slightly distended. Multiple scars on the abdominal wall. No appreciable hepatosplenomegaly. EXTREMITIES: No clubbing, cyanosis, or edema. LABORATORY STUDIES: Reviewed in the HPI. Chest x-ray showed no evidence of pulmonary edema and mild bibasilar opacities which favor atelectasis. KUB x-ray showed no evidence of bowel obstruction. IMPRESSION: A 45-year-old male with an intentional overdose of SSRI and alcohol, chronic social on problems including pending divorce, with abdominal pain, nausea, vomiting. PLAN: I believe that the most likely reason the patient has nausea, vomiting and abdominal pain stems from his recent overdose, and I would recommend continuing on supportive care with Protonix 40 mg p.o. daily, Pepcid 20 mg p.o. b.i.d., and antiemetics as needed, though I do not believe the patient needs to undergo an invasive workup at this time as he has more pressing psychiatric matters at this time, and his workup from a GI standpoint can proceed as an outpatient when he is discharged. Once again, thanks for allowing me to participate in the care of this patient. I will be away on 09/09/2016, and my service will be covered by the [facility] GI team. If you have any questions, you can defer to them. I will resume his care on 09/10/2016.
[2016-09-09] MEDS: NSS + 20MEQ KCL 1000ML 1,000 ML IV SCH (05:38)
[2016-09-09 05:56] LABS: BASO % 0.1 %; BASO ABS # 0.01 K/uL (0-0.2); COMPLETE YES; EOS % 6.6 %; HEMATOCRIT 44.1 % (42-52); IG% 0.4 %; LYMPH % 15.7 %; LYMPH ABS # 1.05 K/uL (1.2-3.4); MEAN CELL VOLUME 94.6 fL (80-100); MEAN CORPUSCULAR HEMOGLOBIN 30.7 pg (25-34); MEAN CORPUSCULAR HGB CONC 32.4 g/dl (32-36); MEAN PLATELET VOLUME 11.1 fL (7.4-10.4); MONO % 11.2 %; PLATELET COUNT 177 K/uL (130-400); RED BLOOD COUNT 4.66 M/uL (4.7-6.1); WHITE BLOOD COUNT 6.67 K/uL (4.8-10.8)
[2016-09-09 06:09] LABS: PROTHROMBIN TIME (PATIENT) 10.6 SECONDS (9.0-12.0)
[2016-09-09 06:36] LABS: BUN/CREATININE RATIO 3.8 (10-20); CALCIUM 7.7 mg/dl (8.5-10.1); CREATININE 0.93 mg/dl (0.60-1.40); MAGNESIUM 2.3 mg/dl (1.8-2.4); POTASSIUM 4.5 mmol/L (3.5-5.1)
[2016-09-09 07:21] VITALS: BP 126/81; PULSE 65; TEMP 37; O2SAT 95
[2016-09-09] MEDS: PANTOprazole SOD 40 MG TAB PO SCH (07:47)
[2016-09-09] MEDS: ACETAMINOPHEN IV 100 ML IV PRN ×2 (07:47→16:21)
[2016-09-09] MEDS: FAMOTIDINE 20 MG TAB PO SCH ×2 (07:47→20:13)
[2016-09-09] MEDS: ONDANSETRON INJ 2 MG/ML 2 ML VIAL IV PRN ×3 (07:48→23:42)
[2016-09-09] MEDS ORDERED: ONDA4TAB10 SL (09:54)
[2016-09-09] MEDS ORDERED: PRT40 PO (09:54)
[2016-09-09] MEDS ORDERED: FAMO20TA12 PO (09:54)
--- NOTE | 2016-09-09 11:05 | Discharge Instructions ---
Discharge Instructions Date of Service September 09, 2016. Admission Reason for Admission: Intentional Ssri Overdose Discharge Discharge Diagnosis / Problem: Intentional SSRI Overdose Discharge Goals Goal(s): Decrease discomfort, Improve function, Increase independence Activity Recommendations Activity Level: Up Ad Izzy . Additional Information Patient informed of condition: Yes Advance Directives: No DNR: No Level of Care: Other (Mental Health Facility) Communicable Disease: No Prognosis: Stable Instructions / Follow-Up Instructions / Follow-Up Intentional SSRI Overdose: Prozac 40 mg x 15 pills + ETOH - Monitored on telemetry with no arrhythmias - Discontinued home regimen - Prozac, Trazadone, and Hydroxyzine -- Did not implement any medications at this time and would defer to psychiatry for institution and monitoring - Reviewing hospital psych note - given multiple antidepressants and his impulsive behavior? Undiagnosed bipolar disorder...may benefit from antipsychotic? ETOH Dependence: - Withdrawal protocol utilized with Ativan PRN - initially minor withdrawal symptoms of tremors and anxiety but not further symptoms Abdominal Pain with Nausea: H/O Hirschsprungs Disease S/P Bowel Resection as Child - Reporting abdominal pain and nausea are chronic but exacerbated after ingestion of Prozac x 15 pills. - KUB without evidence of obstruction and CT performed prior to admission without abnormal findings - Patient continues to have BMs and flatus. No emesis and finishes meals but does report continued nausea/pain. - Pain is located near incision site question multiple etiologies: Adhesional given extensive surgery and Gastritis given overdose with ETOH -- Reports utilizing Prozac x 4 months and was abruptly stopped due to overdose - possible withdrawal effect? - Rx provided for Protonix 40 mg daily and Pepcid 20 mg BID. Zofran Rx for PRN usage - On exam there is no guarding, rigidity, grimacing to light and deep palpation Renal Cancer: CT (09/05/16) - no evidence of renal CA at ablation site - no metastatic disease Code Status: FULL RESUSCITATION Disposition: - Is willing to voluntarily commit to inpatient mental health Current Hospital Diet Patient's current hospital diet: Regular Diet Discharge Diet Recommended Diet: Regular Diet Pending Studies Studies pending at discharge: no Physician Orders On Transfer POLST Discussion: Not Applicable Medical Emergencies . Who to Call and When: Medical Emergencies: If at any time you feel your situation is an emergency, please call 911 immediately. . Non-Emergent Contact Non-Emergency issues call your: Primary Care Provider . . "Provider Documentation" section prepared by Dominga Vale. . Core Measure Problem Core Measures: None
[2016-09-09 11:35] VITALS: BP 116/76; PULSE 79; TEMP 36.8; O2SAT 96
--- NOTE | 2016-09-09 13:20 | DIAGNOSTIC IMAGING REPORT ---
KULiane CLINICAL HISTORY: Abdominal pain. COMPARISON STUDY: CT of the abdomen and pelvis September 05, 2016 and KUB September 06, 2016. FINDINGS: The bowel gas pattern is normal. There is a mild to moderate amount stool within the colon. IMPRESSION: No evidence for a bowel obstruction. Electronically signed by: Jeremias Garcia M.D. 09/09/2016 1:19 PM Dictated Date/Time: 09/09/2016 1:18 PM
--- NOTE | 2016-09-09 13:30 | Hospitalist Progress Note ---
Hospitalist Progress Note Date of Service September 09, 2016. Subjective Pt evaluation today including: conversation w/ patient, physical exam, chart review, lab review, review of studies, conversation w/ business sales consultant (Psychiatry), review of inpatient medication list Patient seen and evaluated. Continues to have abdominal pain and nausea without emesis. Has been eating full meals. Did attempt to advance diet but he reports he cannot tolerate it and clears have been reinstituted. He reports he has been on Prozac x 4 months - question possible withdrawal affects from sudden cessation of SSRI as severe GI complaints possible? As well, likely a significant gastritis given overdose. Reports still having bowel movements but not his normal amount and will obtain KUB No signs of alcohol withdrawal effects at this time. Constitutional: No chills, No fever Eyes: No worsening of vision Respiratory: No cough, No shortness of breath Cardiovascular: No chest pain Abdomen: + nausea, + pain, + problem reported (increased flatus), No GI bleeding, No constipation, No diarrhea, No vomiting Musculoskeletal: No calf pain, No swelling Male : No dysuria Neurologic: + problem reported (intermittent lightheadedness) Medications Current Inpatient Medications Medications (Trade) Dose Ordered Sig/Bakari Route Start Time Stop Time Status Last Admin Dose Admin Lorazepam (Ativan Inj) 0.5 mg Q4H PRN IV 09/07/16 04:30 10/07/16 04:29 Lorazepam 1 mg 1 mg Q4H PRN IV 09/07/16 04:30 10/07/16 04:29 09/08/16 20:06 1 MG Acetaminophen (Ofirmev Iv) 100 ml @ 400 mls/hr Q8H PRN IV 09/07/16 05:45 10/07/16 05:44 09/09/16 07:47 400 MLS/HR Thiamine HCl (Vitamin B-1 Tab) 100 mg Q24H PO 09/07/16 17:00 10/07/16 16:59 09/08/16 15:34 100 MG Lorazepam (Ativan Tab) PRN Dosing -Active Protocol UD PRN PO 09/07/16 16:45 10/07/16 16:44 Ondansetron HCl (Zofran Inj) 4 mg Q4H PRN IV 09/08/16 01:00 10/08/16 00:59 09/09/16 07:48 4 MG Calcium Carbonate (Tums Chew Tab) 500 mg TID PRN PO 09/08/16 03:30 10/08/16 03:29 09/08/16 19:01 500 MG Famotidine (Pepcid Tab) 20 mg BID PO 09/08/16 21:00 10/08/16 20:59 09/09/16 07:47 20 MG Pantoprazole Sodium (Protonix Tab) 40 mg QAM PO 09/09/16 09:00 10/09/16 08:59 09/09/16 07:47 40 MG Sucralfate (Carafate Tab) 1 gm QID PO 09/09/16 13:00 10/09/16 12:59 UNV Objective Vital Signs Date Time Temp Pulse Resp B/P Pulse Ox O2 Delivery O2 Flow Rate FiO2 09/09/16 11:35 36.8 79 16 116/76 96 Room Air 09/09/16 11:20 Room Air 09/09/16 07:30 Room Air 09/09/16 07:21 37.0 65 16 126/81 95 Room Air 09/09/16 04:08 36.9 82 18 124/76 95 Room Air 09/09/16 04:00 Room Air 09/08/16 23:59 Room Air 09/08/16 23:45 37.0 80 20 128/81 96 Room Air 09/08/16 20:00 Room Air 09/08/16 19:05 37.1 86 18 134/93 94 Room Air 09/08/16 17:30 37.0 95 20 120/82 94 Room Air 09/08/16 16:00 Room Air Physical Exam General Appearance: WD/WN, no apparent distress Eyes: sclerae normal ENT: hearing grossly normal Neck: supple, no JVD, trachea midline Respiratory/Chest: lungs clear, normal breath sounds, no respiratory distress, no accessory muscle use Cardiovascular: regular rate, rhythm, no gallop, no murmur Abdomen: normal bowel sounds, non tender (reports tenderness to deep palpation without grimacing, guarding, or rigidity), soft, + pertinent finding (multiple abdominal incisions well-healed) Extremities: no pedal edema, no calf tenderness Neurologic/Psychiatric: no motor/sensory deficits, alert, oriented x 3 Skin: normal color, warm/dry Laboratory Results Last 24 Hours Test 5/22/17 13:51 09/08/16 22:07 09/09/16 05:18 Troponin I < 0.015 ng/ml < 0.015 ng/ml White Blood Count 6.67 K/uL Red Blood Count 4.66 M/uL Hemoglobin 14.3 g/dL Hematocrit 44.1 % Mean Corpuscular Volume 94.6 fL Mean Corpuscular Hemoglobin 30.7 pg Mean Corpuscular Hemoglobin Concent 32.4 g/dl Platelet Count 177 K/uL Mean Platelet Volume 11.1 fL Neutrophils (%) (Auto) 66.0 % Lymphocytes (%) (Auto) 15.7 % Monocytes (%) (Auto) 11.2 % Eosinophils (%) (Auto) 6.6 % Basophils (%) (Auto) 0.1 % Neutrophils # (Auto) 4.39 K/uL Lymphocytes # (Auto) 1.05 K/uL Monocytes # (Auto) 0.75 K/uL Eosinophils # (Auto) 0.44 K/uL Basophils # (Auto) 0.01 K/uL RDW Standard Deviation 45.9 fL RDW Coefficient of Variation 13.5 % Immature Granulocyte % (Auto) 0.4 % Immature Granulocyte # (Auto) 0.03 K/uL Prothrombin Time 10.6 SECONDS Prothromb Time International Ratio 1.0 Activated Partial Thromboplast Time 25.0 SECONDS Partial Thromboplastin Ratio 1.0 Sodium Level 144 mmol/L Potassium Level 4.5 mmol/L Chloride Level 108 mmol/L Carbon Dioxide Level 30 mmol/L Anion Gap 6.0 mmol/L Blood Urea Nitrogen 4 mg/dl Creatinine 0.93 mg/dl Est Creatinine Clear Calc Drug Dose 84.4 ml/min Estimated GFR () 116.1 Estimated GFR (Non- 100.2 BUN/Creatinine Ratio 3.8 Random Glucose 72 mg/dl Calcium Level 7.7 mg/dl Magnesium Level 2.3 mg/dl Total Bilirubin 0.6 mg/dl Direct Bilirubin 0.1 mg/dl Aspartate Amino Transf (AST/SGOT) 15 U/L Alanine Aminotransferase (ALT/SGPT) 18 U/L Alkaline Phosphatase 75 U/L Total Protein 6.2 gm/dl Albumin 3.3 gm/dl Assessment and Plan Intentional SSRI Overdose: Prozac 40 mg x 15 pills + ETOH - Hold home regimen - Prozac, Trazadone, and Hydroxyzine - Psychiatry following - appreciate input ETOH Dependence: - AWSS Protocol - no current withdrawal symptoms Abdominal Pain with Nausea: Acute Gastritis vs Adhesional vs SSRI Withdrawal - Reports that he has had this abdominal pain and nausea chronically but acutely exacerbated - Will obtain new KUB as BMs have decreased - Protonix 40 mg po daily and Pepcid 20 mg BID - Added Carafate 1 g QID - Consulted GI - recommendations reviewed - recommend current regimen and likely culprit of overdose Renal Cancer: CT (09/05/16) - no evidence of renal CA at ablation site - no metastatic disease DVT Prophylaxis: SCDs Code Status: FULL RESUSCITATION Disposition: - Suitable for Med/Surg - no arrhythmias - Will attempt to better control abdominal pain/nausea - possibly to the Diehl - will have to see how he is tomorrow - did move diet back to clears Discharge planning: other (inpatient behavior health)
[2016-09-09 13:34] VITALS: BP 116/76; PULSE 79; TEMP 36.8; O2SAT 96
[2016-09-09] MEDS: SUCRALFATE 1 GM TAB PO SCH ×3 (14:15→21:00)
[2016-09-09] MEDS: CALCIUM CARBONATE 500 MG CHEWABLE PO PRN (14:49)
[2016-09-09 14:50] VITALS: BP 134/78; PULSE 85; TEMP 37.2; O2SAT 95
[2016-09-09 15:16] VITALS: BP 112/75; PULSE 83; TEMP 37; O2SAT 95
[2016-09-09] MEDS: THIAMINE HCL 100 MG TAB PO SCH (20:12)
[2016-09-10] VITALS: O2SAT 95
[2016-09-10 00:10] VITALS: BP 152/83; PULSE 75; TEMP 36.9; O2SAT 96
[2016-09-10] MEDS: ACETAMINOPHEN IV 100 ML IV PRN ×3 (00:29→16:54)
[2016-09-10] MEDS: LORAZEPAM 1 MG TAB PO PRN ×3 (00:30→23:32)
[2016-09-10 07:56] VITALS: BP 124/89; PULSE 76; TEMP 36.3; O2SAT 95
[2016-09-10] MEDS: PANTOprazole SOD 40 MG TAB PO SCH (08:07)
[2016-09-10] MEDS: SUCRALFATE 1 GM TAB PO SCH ×4 (08:07→21:12)
[2016-09-10] MEDS: FAMOTIDINE 20 MG TAB PO SCH ×2 (08:07→21:13)
[2016-09-10] MEDS: ONDANSETRON INJ 2 MG/ML 2 ML VIAL IV PRN ×4 (08:08→23:32)
[2016-09-10] MEDS: DOCUSATE SODIUM 100 MG CAP PO SCH ×2 (11:31→21:12)
[2016-09-10] MEDS ORDERED: POLYETHYLENE (MIRALAX) 17 GM PACK PO ONE (11:45)
--- NOTE | 2016-09-10 13:53 | Hospitalist Progress Note ---
Hospitalist Progress Note Date of Service September 10, 2016. Subjective Pt evaluation today including: conversation w/ patient, physical exam, chart review, review of studies, review of inpatient medication list Patient seen and evaluated. Continues to complain of abdominal pain. KUB shows moderate amount of stool and did have multiple bowel movements yesterday after KUB. Continues to tolerate a clear liquid diet but still reports this abdominal pain. Did institute Colace and Miralax daily as he may continue to have constipation. Today he does make some facial grimacing with palpation of abdomen. CTA performed prior to admission without abnormalities that can explain pain. This pain was also not relieved with morphine 3 mg early in the admission. Would avoid narcotics given constipation and would avoid NSAIDs in setting of recent Prozac overdose. He does not ambulate much and largely lays in bed. Did express the need to sit in bedside chair and walk around. Patient in agreement but unsure if he will participate. Constitutional: No chills, No fever Respiratory: No shortness of breath Cardiovascular: No chest pain Abdomen: + pain, No nausea Musculoskeletal: No calf pain, No swelling Male : No dysuria Medications Current Inpatient Medications Medications (Trade) Dose Ordered Sig/Bakari Route Start Time Stop Time Status Last Admin Dose Admin Lorazepam (Ativan Inj) 0.5 mg Q4H PRN IV 09/07/16 04:30 10/07/16 04:29 Lorazepam (Ativan Inj) 1 mg Q4H PRN IV 09/07/16 04:30 10/07/16 04:29 09/08/16 20:06 1 MG Thiamine HCl (Vitamin B-1 Tab) 100 mg Q24H PO 09/07/16 17:00 10/07/16 16:59 09/09/16 20:12 100 MG Lorazepam (Ativan Tab) PRN Dosing -Active Protocol UD PRN PO 09/07/16 16:45 10/07/16 16:44 09/10/16 08:08 1 MG Ondansetron HCl (Zofran Inj) 4 mg Q4H PRN IV 09/08/16 01:00 10/08/16 00:59 09/10/16 13:08 4 MG Calcium Carbonate (Tums Chew Tab) 500 mg TID PRN PO 09/08/16 03:30 10/08/16 03:29 09/09/16 14:49 500 MG Famotidine (Pepcid Tab) 20 mg BID PO 09/08/16 21:00 10/08/16 20:59 09/10/16 08:07 20 MG Pantoprazole Sodium (Protonix Tab) 40 mg QAM PO 09/09/16 09:00 10/09/16 08:59 09/10/16 08:07 40 MG Sucralfate (Carafate Tab) 1 gm QID PO 09/09/16 13:00 10/09/16 12:59 09/10/16 13:07 1 GM Docusate Sodium (coLACE CAP) 100 mg BID PO 09/10/16 09:00 10/10/16 08:59 09/10/16 11:31 100 MG Polyethylene 17 gm 17 gm DAILY PO 09/11/16 09:00 10/11/16 08:59 Acetaminophen (Ofirmev Iv) 100 ml @ 400 mls/hr Q8H PRN IV 09/10/16 17:45 10/10/16 17:44 Objective Vital Signs Date Time Temp Pulse Resp B/P Pulse Ox O2 Delivery O2 Flow Rate FiO2 09/10/16 08:00 Room Air 09/10/16 07:56 36.3 76 18 124/89 95 Room Air 09/10/16 00:10 36.9 75 20 152/83 96 Room Air 09/10/16 00:00 95 Room Air 09/09/16 16:00 Room Air 09/09/16 15:16 37.0 83 20 112/75 95 Room Air 09/09/16 14:50 37.2 85 18 134/78 95 Physical Exam General Appearance: WD/WN, no apparent distress Eyes: sclerae normal ENT: hearing grossly normal Neck: supple, no JVD, trachea midline Respiratory/Chest: lungs clear, normal breath sounds, no respiratory distress, no accessory muscle use Cardiovascular: regular rate, rhythm, no gallop, no murmur Abdomen: normal bowel sounds, soft, + pertinent finding (numerous well healed surgical incisions; mild tenderness to palpation) Extremities: no pedal edema, no calf tenderness Neurologic/Psychiatric: alert, oriented x 3 Skin: normal color, warm/dry Assessment and Plan Intentional SSRI Overdose: Prozac 40 mg x 15 pills + ETOH - Hold home regimen - Prozac, Trazadone, and Hydroxyzine - Psychiatry following - appreciate input ETOH Dependence: - AWSS Protocol - no current withdrawal symptoms Abdominal Pain with Nausea: Acute Gastritis vs Adhesional vs SSRI Withdrawal - Reports that he has had this abdominal pain and nausea chronically but acutely exacerbated - KUB with moderate stool - did have multiple BMs after KUB - Protonix 40 mg po daily and Pepcid 20 mg BID - Carafate 1 g QID - Colace 100 mg BID and Miralax daily - Consulted GI - recommendations reviewed - recommend current regimen and likely culprit of overdose Renal Cancer: CT (09/05/16) - no evidence of renal CA at ablation site - no metastatic disease DVT Prophylaxis: SCDs Code Status: FULL RESUSCITATION Disposition: - Will attempt a bowel regimen and may need to be more aggressive. With multiple imaging and largely benign exam it is hard to appreciate an underlying etiology - He wants to stay with clear liquid diet
[2016-09-10 14:58] VITALS: BP 132/84; PULSE 90; TEMP 36.7; O2SAT 96
[2016-09-10] MEDS: THIAMINE HCL 100 MG TAB PO SCH (16:55)
[2016-09-10] MEDS: CALCIUM CARBONATE 500 MG CHEWABLE PO PRN (16:56)
[2016-09-10] MEDS ORDERED: ACETAMINOPHEN IV 100 ML IV PRN (17:45)
[2016-09-10 23:42] VITALS: BP 127/94; PULSE 95; TEMP 37.1; O2SAT 95
[2016-09-11] VITALS: O2SAT 95
[2016-09-11] MEDS: LORAZEPAM 1 MG TAB PO PRN (01:20)
[2016-09-11] MEDS: ACETAMINOPHEN IV 100 ML IV PRN ×2 (01:20→10:28)
[2016-09-11 08:00] VITALS: BP 127/82; PULSE 82; TEMP 36.7; O2SAT 98
[2016-09-11] MEDS: DOCUSATE SODIUM 100 MG CAP PO SCH (09:00)
[2016-09-11] MEDS ORDERED: POLYETHYLENE (MIRALAX) 17 GM PACK PO SCH (09:00)
[2016-09-11] MEDS: PANTOprazole SOD 40 MG TAB PO SCH (09:22)
[2016-09-11] MEDS: FAMOTIDINE 20 MG TAB PO SCH (09:22)
[2016-09-11] MEDS: SUCRALFATE 1 GM TAB PO SCH ×2 (09:23→12:31)
[2016-09-11 11:21] VITALS: BP_SYST 118; BP_SYST 120; BP_SYST 122; BP_DIAS 81; BP_DIAS 85; PULSE 111; PULSE 90; PULSE 96; TEMP 36.7; O2SAT 97
[2016-09-11] MEDS: ONDANSETRON INJ 2 MG/ML 2 ML VIAL IV PRN (11:41)
--- NOTE | 2016-09-11 12:30 | Progress Note ---
Subjective Date of Service: September 11, 2016. Subjective Pt evaluation today including: conversation w/ patient, physical exam, chart review, lab review, review of studies, conversation w/ sec reporting consultant, review of inpatient medication list No more report dizziness, but has some bowel movement, some abdominal pain is chronic is not new, Problem List Medical Problems: (1) Arm pain, left Status: Acute (2) Dizziness Status: Acute (3) Herpes zoster Status: Acute (4) Mood disorder Status: Acute (5) Overdose Status: Acute (6) Rash Status: Acute (7) Spasm of back muscles Status: Acute (8) Substernal precordial chest pain Status: Acute (9) Suicidal ideation Status: Acute (10) Suicidal ideation Status: Acute (11) Wrist pain, left Status: Acute (12) Wrist pain, left Status: Acute Review of Systems Constitutional: No chills, No fatigue, No fever, No problem reported, No sweats , No weakness, No weight loss Eyes: No diplopia, No discharge, No eye pain, No redness, No worsening of vision ENT: No dental problems, No hearing loss, No nasal symptoms, No sore throat, No tinnitus, No trouble swallowing, No unusual epistaxis Respiratory: No cough, No dyspnea at rest, No dyspnea on exertion, No hemoptysis, No shortness of breath, No sputum, No wheezing Cardiac: No PND, No chest pain, No claudication, No edema, No orthopnea, No palpitations Abdomen: + pain, + see HPI, No constipation, No diarrhea, No nausea, No vomiting Musculoskeletal: No calf pain, No joint pain, No muscle pain, No swelling Male : No dysuria, No hematuria, No incontinence, No nocturia more than once/ night, No slowing stream, No urinary frequency Neurologic: No balance problems, No memory loss, No numbness/tingling, No paralysis, No vertigo, No weakness Psychiatric: No anhedonism, No anxiety, No depression symptoms, No insomnia, No substance abuse Heme: No abnormal bleeding/bruising, No clotting problems, No night sweats, No swollen lymph nodes Endo: No excessive thirst, No excessive urination, No fatigue Skin: No bleeding, No color change, No itch, No new/changing skin lesions, No rash Objective Vital Signs Date Time Temp Pulse Resp B/P Pulse Ox O2 Delivery O2 Flow Rate FiO2 09/11/16 11:21 36.7 90 20 122/85 97 Room Air 96 120/81 111 118/81 09/11/16 08:00 98 Room Air 09/11/16 08:00 36.7 82 20 127/82 98 Room Air 09/11/16 00:00 95 Room Air 09/10/16 23:42 37.1 95 18 127/94 95 Room Air 09/10/16 16:20 Room Air 09/10/16 14:58 36.7 90 19 132/84 96 Room Air Physical Exam General Appearance: WD/WN, no apparent distress, + thin Eyes: normal inspection, PERRL, EOMI, sclerae normal ENT: normal ENT inspection, hearing grossly normal, pharynx normal Neck: supple, no adenopathy, thyroid normal, no JVD, no carotid bruits, trachea midline Respiratory/Chest: chest non-tender, normal breath sounds, no respiratory distress, no accessory muscle use, + decreased breath sounds Cardiovascular: regular rate, rhythm, no edema, no gallop, no JVD, no murmur Abdomen: normal bowel sounds, non tender, soft, no organomegaly, no pulsatile mass, + pertinent finding (mid abdomen a lot scar) Extremities: normal range of motion, non-tender, normal inspection, no pedal edema, no calf tenderness, normal capillary refill, pelvis stable Neurologic/Psychiatric: tobacco packer II-XII nml as tested, no motor/sensory deficits, alert, normal mood/affect, oriented x 3 Skin: normal color, warm/dry, no rash Lymphatic: no adenopathy Assessment and Plan 45-year-old white male admitted on 09/07/2016 because of Intentional SSRI Overdose: Prozac 40 mg x 15 pills + ETOH - Hold home regimen - Prozac, Trazadone, and Hydroxyzine - Psychiatry following - appreciate input ETOH Dependence: Stable - AWSS Protocol - no current withdrawal symptoms Abdominal Pain with Nausea: Possible in his baseline Acute Gastritis vs Adhesional vs SSRI Withdrawal - Reports that he has had this abdominal pain and nausea chronically - KUB with moderate stool - did have multiple BMs after KUB - Protonix 40 mg po daily and Pepcid 20 mg BID - Carafate 1 g QID - Colace 100 mg BID and Miralax daily - Consulted GI - recommendations reviewed - recommend current regimen and likely culprit of overdose, has no planning to do the colonoscopy in this hospitalization History of Renal Cancer: CT (09/05/16) - no evidence of renal CA at ablation site - no metastatic disease Subjective dizziness, do not report any dizziness today Orthostatic blood pressure negative, however heart rate mild attenuation, DVT Prophylaxis: SCDs Code Status: FULL RESUSCITATION Disposition: Encourage advanced diet Discussed with psychiatry planning to discharged when bed available I feel patient medically ready Continued [facility] stay due to: multiple IV medications needed Discharge planning: other (inpatient behavior health)
[2016-09-11 15:10] VITALS: BP_SYST 120; BP_SYST 133; BP_DIAS 101; BP_DIAS 85; BP_DIAS 91; PULSE 100; PULSE 122; PULSE 99; TEMP 36.7; O2SAT 95
--- NOTE | 2016-09-11 15:12 | Discharge Instructions ---
Discharge Instructions Date of Service September 11, 2016. Admission Reason for Admission: Intentional Ssri Overdose Discharge Discharge Diagnosis / Problem: Intentional SSRI Overdose: Discharge Goals Goal(s): Decrease discomfort, Improve function, Increase independence, Improve disease control, Improve nutritional status, Learn about illness, Diagnostic testing, Therapeutic intervention, Prevent Disease Progression, Specific goals Activity Recommendations Activity Limitations: resume your previous activity May Resume Sexual Activity: when tolerated . Instructions / Follow-Up Instructions / Follow-Up you have Intentional SSRI Overdose: you was alcohol Dependence: you have Acute Gastritis you need to follow up with GI foe colonoscopy as out patient I am sending you to inpatient psych rehab - you need to follow up with your primary care physician in 1 week, - take medication as instructed, never overdose or any misuse, or take with alcohol, because misuse of medicine may cause organ damage or , call your primary care physician if have questions of medicaitons. - call your primary care physician OR go to local emergency room if has any fever/chill, chest pain, shortness of breathing, nausea/vomiting/abdominal pain , facial droop/slurry speech/local weakness, or if has any questions. - fall precaution - diet as instructed - you need to follow up with your subspecialist - you should understand that it is important to follow up the above instruction , and "not following the above instruction" may cause delayed or missed care of your medical conditions which may cause permanent organ damage and even . . I Current Hospital Diet Patient's current hospital diet: Regular Diet Discharge Diet Recommended Diet: Regular Diet Pending Studies Studies pending at discharge: no Medical Emergencies . Who to Call and When: Medical Emergencies: If at any time you feel your situation is an emergency, please call 911 immediately. . Non-Emergent Contact Non-Emergency issues call your: Primary Care Provider, [employer] . . "Provider Documentation" section prepared by Wil Jain. . VTE Core Measure Inpt VTE Proph given/why not?: SCD's
--- NOTE | 2016-09-11 15:16 | Discharge Summary ---
Discharge Summary Date of Service September 11, 2016. Discharge Summary Admission Date: September 07, 2016 at 04:29 Discharge Date: September 11, 2016 Discharge Disposition: Acute care mental health Principal Diagnosis: intentional SSRI Overdose: Problems/Secondary Diagnoses: ETOH Dependence: Acute Gastritis with Abdominal Pain with Nausea: Immunizations: Have You Had Influenza Vaccine: N/A History of Tetanus Vaccine?: Unknown History of Pneumococcal: No History of Hepatitis B Vaccine: Unknown Consultations: Psychiatrist consult Medication Reconciliation New Medications: Ondasetron Odt (Zofran Odt) 4 Mg Tab 4 MG SL Q6H for Nausea for 7 Days, #28 TAB Famotidine (Famotidine) 20 Mg Tab 20 MG PO BID for 14 Days, #28 TAB Pantoprazole (Pantoprazole Sodium) 40 Mg Tab 40 MG PO QAM for 14 Days, #14 TAB Discontinued Medications: Fluoxetine Hcl (Prozac) 40 Mg Cap 40 MG PO DAILY, #30 Hydroxyzine HCl (Hydroxyzine Pamoate) 25 Mg Tab 25 MG PO UD PRN for Anxiety Trazodone Hcl (Trazodone) 50 Mg Tab 50 MG PO HS PRN for Sleep, #15 Discharge Exam Feeling okay, did not report any dizziness, orthostatic negative, has some bowel movement, eating clear liquid diet Review of Systems: Constitutional: + problem reported (see today's progress note), No chills, No fatigue, No fever, No sweats, No weakness, No weight loss Eyes: No diplopia, No discharge, No eye pain, No problem reported, No redness, No worsening of vision ENT: No dental problems, No hearing loss, No nasal symptoms, No problem reported, No sore throat, No tinnitus, No trouble swallowing, No unusual epistaxis Respiratory: No cough, No dyspnea at rest, No dyspnea on exertion, No hemoptysis, No problem reported, No shortness of breath, No sputum, No wheezing Physical Exam: General Appearance: + pertinent finding (see today's progress note) Hospital Course 45-year-old white male admitted on 09/07/2016 because of Intentional SSRI Overdose: Prozac 40 mg x 15 pills + ETOH - Hold home regimen - Prozac, Trazadone, and Hydroxyzine - Psychiatry following - appreciate input ETOH Dependence: Stable - AWSS Protocol - no current withdrawal symptoms Abdominal Pain with Nausea: Possible in his baseline Acute Gastritis vs Adhesional vs SSRI Withdrawal - Reports that he has had this abdominal pain and nausea chronically - KUB with moderate stool - did have multiple BMs after KUB - Protonix 40 mg po daily and Pepcid 20 mg BID - Carafate 1 g QID - Colace 100 mg BID and Miralax daily - Consulted GI - recommendations reviewed - recommend current regimen and likely culprit of overdose, has no planning to do the colonoscopy in this hospitalization History of Renal Cancer: CT (09/05/16) - no evidence of renal CA at ablation site - no metastatic disease Subjective dizziness, do not report any dizziness today Orthostatic blood pressure negative, however heart rate mild attenuation, DVT Prophylaxis: SCDs Code Status: FULL RESUSCITATION Disposition: Encourage advanced diet Discussed with psychiatry planning to discharged when bed available I feel patient medically ready Patient is going to discharge to [place] in stable medical condition intentional SSRI Overdose: you was alcohol Dependence: you have Acute Gastritis you need to follow up with GI foe colonoscopy as out patient I am sending you to inpatient psych rehab - you need to follow up with your primary care physician in 1 week, - take medication as instructed, never overdose or any misuse, or take with alcohol, because misuse of medicine may cause organ damage or , call your primary care physician if have questions of medicaitons. - call your primary care physician OR go to local emergency room if has any fever/chill, chest pain, shortness of breathing, nausea/vomiting/abdominal pain , facial droop/slurry speech/local weakness, or if has any questions. - fall precaution - diet as instructed - you need to follow up with your subspecialist - you should understand that it is important to follow up the above instruction , and "not following the above instruction" may cause delayed or missed care of your medical conditions which may cause permanent organ damage and even . . I Total Time Spent: Greater than 30 minutes This includes examination of the patient, discharge planning, medication reconciliation, and communication with other providers. Discharge Instructions Please refer to the electronic Patient Visit Report (Discharge Instructions) for additional information. Additional Copies To Clint Andre M.D.
[2016-09-11 15:18] VITALS: BP 133/91; PULSE 122; TEMP 36.7; O2SAT 95
== END 2016-09-11 15:54 | DRG 918 ==
LOC: ENRESERVTM → ENRESERVDT → EDBD 02:52 → C.EDB 02:57 → C.2T 04:29 → EDBEDREQSVC 09-09 12:47 → C.MS2W 09-09 14:44
PROVIDERS: ADMIT Hospitalist; ATTEND Hospitalist
DX: T43.222A Poisoning by selective serotonin reuptake inhibitors, intentional self-harm, initial encounter (principal); F19.939 Other psychoactive substance use, unspecified with withdrawal, unspecified; F32.9 Major depressive disorder, single episode, unspecified; F10.20 Alcohol dependence, uncomplicated; K29.70 Gastritis, unspecified, without bleeding; K66.0 Peritoneal adhesions (postprocedural) (postinfection); N18.9 Chronic kidney disease, unspecified; F41.9 Anxiety disorder, unspecified; R41.83 Borderline intellectual functioning; F60.9 Personality disorder, unspecified; Z85.528 Personal history of other malignant neoplasm of kidney; Z90.49 Acquired absence of other specified parts of digestive tract; Z87.19 Personal history of other diseases of the digestive system; Z79.899 Other long term (current) drug therapy